=== PATIENT | male | born 1955 | race African-American/Black ===

== ENCOUNTER 2018-12-06 06:19 | Inpatient (IN) | payer OTHER ==
[~2018-12-06] VITALS: Ht 172.7 cm; Wt 113.0 kg
[~2018-12-06 06:19] MED LIST: ALB5IS NEB; ALBUAER3 IN; AMIO200T33 PO; BACL20TA PO; CLON0.3D4 PO; DOXY-346 PO; FURO1TAB33 PO; Ipratropium Bromide NEB; METO25TA5 PO; NIFE60TA59 PO; PRE5T PO; WARF5TAB71 PO
[2018-12-06 07:42] LABS: Basophils # (auto) 0.1 uL; Hemoglobin 8.1 g/dL (13.5-17.5); Monocytes # (auto) 0.6 uL; Red Cell Distribution Width 19.8 % (11.8-14.3)
[2018-12-06 07:46] LABS: Basophils % (auto) 1.9 % (0.0-2.0); Eosinophils # (auto) 0.3 uL; Eosinophils % (auto) 3.7 % (0.0-7.0); Hematocrit 25.4 % (41.0-53.0); Lymphocytes # (auto) 1.2 uL; Lymphocytes % (auto) 17.3 % (10.0-50.0); Mean Corpuscular Hemoglobin 22.3 pg (28.0-32.0); Mean Corpuscular Volume 69.7 fL (80.0-100.0); Monocytes % (auto) 8.1 % (0.0-12.0); Neutrophils # (auto) 4.9 uL; Platelet Count (auto) 262 10^3/uL (140-450); Red Blood Cells 3.65 10^6/uL (4.5-5.90); White Blood Cell 7.1 10^3/uL (4.4-10.8)
[2018-12-06 08:04] LABS: Albumin 3.4 g/dL (3.4-5.0); Anion Gap 6 (5-15); Blood Urea Nitrogen 14 mg/dL (7-18); Calcium 8.6 mg/dL (8.5-10.1); Carbon Dioxide 24 mmol/L (21-32); Chloride 109 mmol/L (98-107); Glucose 72 mg/dL (74-106); Magnesium 2.1 mg/dL (1.6-2.6); Potassium 3.9 mmol/L (3.5-5.1); Sodium 139 mmol/L (136-145)
[2018-12-06 08:07] LABS: Alanine Aminotransferase 12 U/L (16-61); Aspartate Aminotransferase 16 U/L (15-37); BUN/Creatinine Ratio 11.9; GFR African American 80 mL/min; GFR Non-African American 66 mL/min
[2018-12-06 08:12] LABS: Alkaline Phosphatase 69 U/L (45-117); Bilirubin, Total 0.3 mg/dL (0.2-1.0); Total Protein 8.3 g/dL (6.4-8.2)
[2018-12-06] MEDS ORDERED: NITROGLYCERIN 0.4 MG SL TAB SL PRN (09:00)
[2018-12-06] MEDS ORDERED: FUROSEMIDE 40 MG/4 ML VIAL IV ONE (09:00)
[2018-12-06] MEDS ORDERED: ALBUTEROL SULF 2.5 MG/0.5ML(0.5%) NEB SOLN NEB PRN (09:00)
[2018-12-06] MEDS: FUROSEMIDE 40 MG/4 ML VIAL IV SCH ×2 (09:25→17:18)
[2018-12-06 10:12] LABS: INR 1.53 (0.9-1.15)
[2018-12-06 10:12] LABS: Amphetamine Screen, Urine NEGATIVE (NEGATIVE); Barbiturate Scree,Urine NEGATIVE (NEGATIVE); Benzodiazephine Screen, Urine NEGATIVE (NEGATIVE); Cannabinoid Screen, Urine POSITIVE (NEGATIVE); Cocaine Screen, Urine POSITIVE (NEGATIVE); Phencyclidine Screen, Urine NEGATIVE (NEGATIVE)
[2018-12-06 10:16] LABS: Urine Bacteria NONE SEEN /hpf (None Seen); Urine Blood Negative /uL (Negative); Urine Specific Gravity 1.016 (1.001-1.035); Urine WBC <1 /hpf (0 - 3)
[2018-12-06] MEDS: BACLOFEN 10 MG TAB PO SCH ×2 (10:20→17:19)
[2018-12-06] MEDS: AMIODARONE HCL 200 MG TAB PO SCH ×2 (10:20→17:19)
[2018-12-06 10:21] LABS: Opiate Scree,Urine NEGATIVE (NEGATIVE)
[2018-12-06] MEDS: METOPROLOL TARTRATE 25 MG TAB PO SCH ×2 (10:21→17:19)
[2018-12-06] MEDS: NIFEdipine ER 30 MG TAB PO SCH ×2 (10:21→17:19)
--- NOTE | 2018-12-06 10:50 | NUR ---
TRANSFER FROM ER RECEIVED PATIENT. PATIENT AWAKE AND ALERT. NO SOB OR SIGNS OF DISTRESS NOTED. INSTRUCTED ON POC AND TO CALL FOR ASSISTANCE PRN. BED IN LOWEST POSITION WITH SIDE RAILS UP X2. WILL CONTINUE TO MONITOR.
[2018-12-06] MEDS: DOXYCYCLINE 100MG/250ML 250 ML IV SCH ×2 (12:01→17:19)
[2018-12-06] MEDS ORDERED: cloNIDine HCL 0.1 MG TAB PO SCH (14:00)
[2018-12-06] MEDS ORDERED: FURO1TAB31 PO (15:53)
[2018-12-06] MEDS ORDERED: DOXY-332 PO (15:53)
[2018-12-06] MEDS ORDERED: ALBU0.084 NEB (15:53)
--- NOTE | 2018-12-06 16:48 | NUR ---
D/C Planning Per Consult for home health safety evaluation and nebulizer. Contacted [facility] ph:) Fax:) faxed medical records. [facility] been [facility] and service to start within 48hrs upon d/c day. Contact [facility] ph:) Fax:) faxed medical records requested for nebulizer to be deliver to home when acceptance from insurance. Contacted [facility] ph:) fax:( [phone]) faxed medical records regarding authorization for home health and nebulizer. Addendum: 12/06/18 at 1651 by AYALA HEWITT Amended: Links added.
[2018-12-06 16:54] VITALS: BP 104/68
[2018-12-06] MEDS ORDERED: WARFARIN SODIUM 5 MG TAB PO ONE (17:00)
[2018-12-06 17:01] VITALS: BP 104/68
--- NOTE | 2018-12-06 18:30 | NUR ---
Discharge instructions given as ordered. Encourage to follow up with PCP as instructed. All questions and concerns addressed. Patient verbalized understanding. Medication reconciliation form completed and copy given to patient. IV removed with catheter intact, pressure dressing applied. Telemetry unit returned to ICU. Patient taken to vehicle via wheelchair with all personal belongings, accompanied by staff and family member. No distress noted at time of departure.
== END 2018-12-06 18:30 | disposition home health service (06) | DRG 291 ==
LOC: EDBD 06:19 → ER 06:22 → TELE 06:23 → TELE-WESTW 12:17
PROVIDERS: ADMIT Internal Medicine; ATTEND Internal Medicine
DX: I13.0 Hypertensive heart and chronic kidney disease with heart failure and stage 1 through stage 4 chronic kidney disease, or unspecified chronic kidney disease (principal); J18.9 Pneumonia, unspecified organism; I50.33 Acute on chronic diastolic (congestive) heart failure; I24.9 Acute ischemic heart disease, unspecified; J96.10 Chronic respiratory failure, unspecified whether with hypoxia or hypercapnia; J44.0 Chronic obstructive pulmonary disease with (acute) lower respiratory infection; I25.2 Old myocardial infarction; F17.210 Nicotine dependence, cigarettes, uncomplicated; I35.0 Nonrheumatic aortic (valve) stenosis; D64.9 Anemia, unspecified; Z99.81 Dependence on supplemental oxygen; I48.0 Paroxysmal atrial fibrillation; Z82.49 Family history of ischemic heart disease and other diseases of the circulatory system; Z86.711 Personal history of pulmonary embolism; Z79.01 Long term (current) use of anticoagulants; Z86.718 Personal history of other venous thrombosis and embolism; Z79.899 Other long term (current) drug therapy
CPT/HCPCS: 36415; 71045; 80053; 80307; 81001; 83735; 83880; 84484; 85025; 85610; 93005; 93306; 94640; 96374; G0378; J3490

== ENCOUNTER 2019-06-03 01:02 | Inpatient (IN) | payer OTHER ==
[~2019-06-03] VITALS: Ht 172.7 cm; Wt 99.9 kg
[2019-06-03] VITALS (7 sets, daily range): BP systolic 142–156; BP diastolic 69–83
[~2019-06-03 01:02] MED LIST changes: -ALB5IS NEB; +ALBU0.084 NEB; +DOXY-332 PO; -DOXY-346 PO; +FURO1TAB31 PO; -FURO1TAB33 PO; -Ipratropium Bromide NEB; +NIFE1TAB30 PO; -NIFE60TA59 PO; -PRE5T PO
[2019-06-03 01:41] LABS: Basophils # (auto) 0.1 10 ^3/uL (0-0.2); Basophils % (auto) 0.5 % (0.0-2.0); Eosinophils # (auto) 0.3 10 ^3/uL (0-0.8); Monocytes # (auto) 1.1 10 ^3/uL (0-1.3); Red Blood Cells 5.16 10^6/uL (4.5-5.90)
[2019-06-03 01:44] LABS: Eosinophils % (auto) 2.4 % (0.0-7.0); Hematocrit 31.8 % (41.0-53.0); Lymphocytes # (auto) 2.7 10 ^3/uL (0.4-5.4); Lymphocytes % (auto) 19.1 % (10.0-50.0); Mean Corpuscular Hemoglobin 17.4 pg (28.0-32.0); Mean Corpuscular Hgb Conc. 28.1 g/dL (32.0-36.0); Mean Corpuscular Volume 61.7 fL (80.0-100.0); Monocytes % (auto) 7.7 % (0.0-12.0); Neutrophils % (auto) 70.3 % (37.0-80.0); Platelet Count (auto) 424 10^3/uL (140-450); White Blood Cell 14.2 10^3/uL (4.4-10.8)
[2019-06-03 01:45] LABS: Red Cell Distribution Width 21.3 % (11.8-14.3)
[2019-06-03] MEDS ORDERED: fentaNYL CITRATE 100 MCG/2 ML VL IV ONE (01:45)
[2019-06-03] MEDS ORDERED: ONDANSETRON HCL 4 MG/2 ML VIAL IV ONE ×2 (01:45→03:30)
[2019-06-03] MEDS ORDERED: SODIUM CHLORIDE 0.9% 1,000 ML IV ONE (01:45)
[2019-06-03] MEDS ORDERED: fentaNYL CITRATE 5 ML ONE (01:47)
[2019-06-03 01:59] LABS: Albumin 3.6 g/dL (3.4-5.0); Anion Gap 5 (5-15); Blood Urea Nitrogen 17 mg/dL (7-18); Calcium 9.3 mg/dL (8.5-10.1); Carbon Dioxide 28 mmol/L (21-32); Chloride 103 mmol/L (98-107); Glucose 108 mg/dL (74-106); Potassium 3.9 mmol/L (3.5-5.1); Sodium 136 mmol/L (136-145)
[2019-06-03 02:01] LABS: Alanine Aminotransferase 18 U/L (16-61); Aspartate Aminotransferase 14 U/L (15-37); BUN/Creatinine Ratio 16.7; GFR African American 94 mL/min; GFR Non-African American 78 mL/min
[2019-06-03 02:05] LABS: Alkaline Phosphatase 71 U/L (45-117); Bilirubin, Total 0.3 mg/dL (0.2-1.0); Total Protein 9.1 g/dL (6.4-8.2)
[2019-06-03] MEDS ORDERED: metroNIDAZOLE 500MG/100ML 100 ML IV ONE (02:30)
[2019-06-03] MEDS ORDERED: levoFLOXacin 750MG 150 ML IV ONE (02:30)
[2019-06-03] MEDS ORDERED: ONDANSETRON HCL 4 MG/2 ML VIAL IV PRN (03:15)
[2019-06-03] MEDS ORDERED: ALBUTEROL SULF HFA 90MCG INH 200DOSE IN PRN (03:15)
[2019-06-03] MEDS ORDERED: DOCUSATE SOD 100 MG CAP PO PRN (03:15)
[2019-06-03] MEDS ORDERED: HYDROcodone-ACET 5/325MG TAB PO PRN (03:15)
[2019-06-03] MEDS ORDERED: ALBUTEROL SULF 2.5 MG/0.5ML(0.5%) NEB SOLN NEB PRN (03:15)
[2019-06-03] MEDS ORDERED: ACETAMINOPHEN 325 MG TAB PO PRN (03:15)
[2019-06-03 03:23] LABS: Amylase 140 U/L (25-115); Lipase 284 U/L (73-393)
[2019-06-03] MEDS ORDERED: HYDROmorphone HCL 2 MG/ML VL IV ONE (03:30)
[2019-06-03] MEDS: SODIUM CHLORIDE 0.9% 1,000 ML IV SCH (04:08)
--- NOTE | 2019-06-03 04:32 | NUR ---
Telemetry admit from ER SANTIAGO MAYERS admitted to Telemetry unit after SBAR received. Patient oriented to Eboni Padilla, primary RN, unit, room, bed, and unit policies regarding patient care and visiting hours. Patient now on continuous telemetry monitoring, tele box 31# and telemetry reading on arrival to unit is 66. Patient placed on bedside oxygen, weighed by bedscale and encouraged to call if they need something. All questions and concerns addressed, patient verbalized understanding. Note:
[2019-06-03] MEDS: metroNIDAZOLE 500MG/100ML 100 ML IV SCH ×3 (06:02→16:57)
[2019-06-03] MEDS: MORPHINE SULF INJ 2 MG/ML SYRINGE 1ML IV PRN ×4 (06:44→21:09)
[2019-06-03 07:55] LABS: Basophils # (auto) 0 10 ^3/uL (0-0.2); Basophils % (auto) 0.4 % (0.0-2.0); Eosinophils # (auto) 0.1 10 ^3/uL (0-0.8); Hemoglobin 8.1 g/dL (13.5-17.5); Mean Corpuscular Volume 62.2 fL (80.0-100.0)
[2019-06-03 07:57] LABS: Eosinophils % (auto) 1.3 % (0.0-7.0); Hematocrit 28.5 % (41.0-53.0); Lymphocytes # (auto) 1.5 10 ^3/uL (0.4-5.4); Lymphocytes % (auto) 15.5 % (10.0-50.0); Mean Corpuscular Hemoglobin 17.7 pg (28.0-32.0); Mean Corpuscular Hgb Conc. 28.5 g/dL (32.0-36.0); Monocytes % (auto) 9.7 % (0.0-12.0); Neutrophils # (auto) 7.2 10 ^3/uL (1.6-8.6); Neutrophils % (auto) 73.1 % (37.0-80.0); Nucleated Red Blood Cells % 0.1 %; Platelet Count (auto) 364 10^3/uL (140-450); Red Blood Cells 4.59 10^6/uL (4.5-5.90); White Blood Cell 9.9 10^3/uL (4.4-10.8)
[2019-06-03 08:01] LABS: Red Cell Distribution Width 20.7 % (11.8-14.3)
[2019-06-03 08:13] LABS: BUN/Creatinine Ratio 19.5; Calcium 8.7 mg/dL (8.5-10.1); Potassium 4.1 mmol/L (3.5-5.1)
[2019-06-03 08:37] LABS: INR 2.61 (0.9-1.15); Partial Thromboplastin Time 35.9 sec (23.64-32.05)
--- NOTE | 2019-06-03 09:50 | NUR ---
Respiratory note: Pt assessed for prn med neb tx. spo2 92%, hr 70, rr 18. no s/s of respiratory distress. Pt informed to hit call button if feeling sob or wheezing.
[2019-06-03] MEDS: AMIODARONE HCL 200 MG TAB PO SCH ×2 (10:00→21:17)
[2019-06-03] MEDS: NIFEdipine ER 30 MG TAB PO SCH ×2 (10:00→21:18)
[2019-06-03] MEDS: FUROSEMIDE 40 MG TAB PO SCH ×2 (10:00→21:17)
[2019-06-03] MEDS ORDERED: METOPROLOL TARTRATE 25 MG TAB PO SCH (10:00)
[2019-06-03] MEDS: cloNIDine 0.3 mg/24hr 7DAY PATCH TD SCH (10:00)
[2019-06-03] MEDS: METOPROLOL TARTRATE 25 MG TAB PO SCH ×2 (10:00→21:17)
--- NOTE | 2019-06-03 10:00 | NUR ---
PO MEDS HELD UNTIL SMALL BOWEL SERIES COMPLETED. WILL CONTINUE TO MONITOR.
--- NOTE | 2019-06-03 10:28 | NUR ---
NEW ORDERS RECEIVED FROM DR BOSWELL FOR ACCUCHECKS DUE TO PATIENT BEING NPO
[2019-06-03] MEDS ORDERED: DEXTROSE (50%) 50ML SYRG IV PRN (10:30)
[2019-06-03] MEDS: ACCU-CHEK COMFORT CURVE STRIP VI SCH ×2 (12:00→17:04)
[2019-06-03] MEDS: InsuLIN REG 1unit/0.01ml Soln (100units/ml) SC SCH ×2 (12:00→17:04)
--- NOTE | 2019-06-03 12:50 | NUR ---
RADIOLOGY BEDSIDE TO TAKE PATIENT FOR SMALL BOWEL SERIES.
[2019-06-03] MEDS ORDERED: GASTROGRAFIN 120 ML SOL ONE (12:52)
--- NOTE | 2019-06-03 13:07 | NUR ---
NUTRITION ASSESSMENT NOTES Please refer to link notes of nutrition screen form filed under the intervention section of the plan of care for further details. Est. Energy Needs: 4675-3469 kcal (17-20 kcal/kg BW). Est. Protein Needs: 77-85 gms/day (1.0-1.1 gms/kg Adj.BW). Will continue to monitor pertinent labs and reassess nutrient need prn Addendum: 06/03/19 at [address] Amended: Links added.
--- NOTE | 2019-06-03 13:30 | NUR ---
RETURNED FROM RADIOLOGY. SUCTION TO REMAIN OFF UNTIL SMALL BOWEL SERIES IS COMPLETED. UPDATED PATIENT ON POC.
--- NOTE | 2019-06-03 13:40 | NUR ---
DR BROOKS BEDSIDE ORDERED LABS AND ECHO.
--- NOTE | 2019-06-03 18:36 | NUR ---
STAND BY ASSIST TO RESTROOM; TOLERATED WELL.
--- NOTE | 2019-06-03 19:00 | NUR ---
OPENING NOTE Received report from day shift RN. Patient is A&O X's 4 with no s/s of distress and reports some abdominal pain. Educated patient on POC and on pain management/medication. Patient verbalized understanding. Patient has NG tube to left nare at this time that is no longer to suction. Per day shift RN, it is to remain clamped until small bowel series is completed. tried to call radiology but had no answer. Bed is in lowest/locked position with side rails up X's 2 and call light is within reach of patient. Patient NPO. Will continue care.
--- NOTE | 2019-06-03 21:19 | NUR ---
PO MEDS HELD Patient is NPO. NG tube is off until small bowel series completed.
--- NOTE | 2019-06-03 21:39 | NUR ---
PAIN REASSESSMENT Patient states that he still has generalized abdominal pain. He said that it is not as bad as before. Will continue to monitor.
--- NOTE | 2019-06-03 22:54 | NUR ---
Respiratory note: PT SEEN AND ASSESSED FOR PRN MED NEB TX AT 2254. TX IS NOT INDICATED AT THIS TIME. PT DISPLAYING NO SIGNS OF RESPIRATORY DISTRESS. HR 76 RR 18 POX 98% ON 3L NASAL CANNULA. PT AWARE TO CALL FOR RT IF ANY DISTRESS OCCURS
[2019-06-04] MEDS: metroNIDAZOLE 500MG/100ML 100 ML IV SCH ×2 (00:10→06:09)
[2019-06-04] MEDS: ACCU-CHEK COMFORT CURVE STRIP VI SCH ×3 (00:10→12:00)
[2019-06-04] MEDS: MORPHINE SULF INJ 2 MG/ML SYRINGE 1ML IV PRN ×4 (01:13→14:17)
--- NOTE | 2019-06-04 04:07 | NUR ---
SMALL BOWEL SERIES a/c technician said that they would not know if the series was finished or not because they did not receive any notes saying if they needed to come up and take more images. The tech also said that it would have to wait till day shift in order to know or not if its done. Will inform day shift RN to follow up.
[2019-06-04 04:44] LABS: Basophils # (auto) 0 10 ^3/uL (0-0.2); Basophils % (auto) 0.5 % (0.0-2.0); Eosinophils # (auto) 0.2 10 ^3/uL (0-0.8); Eosinophils % (auto) 3.2 % (0.0-7.0); Hematocrit 27.1 % (41.0-53.0); Hemoglobin 7.5 g/dL (13.5-17.5); INR 3.15 (0.9-1.15); Lymphocytes # (auto) 1.9 10 ^3/uL (0.4-5.4); Lymphocytes % (auto) 25.1 % (10.0-50.0); Mean Corpuscular Hemoglobin 17.6 pg (28.0-32.0); Mean Corpuscular Hgb Conc. 27.8 g/dL (32.0-36.0); Mean Corpuscular Volume 63.4 fL (80.0-100.0); Monocytes # (auto) 1.3 10 ^3/uL (0-1.3); Monocytes % (auto) 17.1 % (0.0-12.0); Neutrophils % (auto) 54.1 % (37.0-80.0); Nucleated Red Blood Cells % 0.1 %; Platelet Count (auto) 331 10^3/uL (140-450); Red Blood Cells 4.27 10^6/uL (4.5-5.90); Red Cell Distribution Width 20.4 % (11.8-14.3); White Blood Cell 7.4 10^3/uL (4.4-10.8)
[2019-06-04 04:54] LABS: BUN/Creatinine Ratio 14.1; Calcium 8.6 mg/dL (8.5-10.1); Potassium 3.8 mmol/L (3.5-5.1)
[2019-06-04 05:40] VITALS: BP 165/83
[2019-06-04] MEDS: InsuLIN REG 1unit/0.01ml Soln (100units/ml) SC SCH ×3 (06:00→12:00)
[2019-06-04] MEDS: SODIUM CHLORIDE 0.9% 1,000 ML IV SCH (06:09)
--- NOTE | 2019-06-04 06:46 | NUR ---
PAIN REASSESSMENT Patient is resting in bed with no s/s of discomfort seen at this time. Patient remains with NG tube to left nare, that is clamped. Patient NPO. Will inform day shift RN about what radiology said and to have them follow up.
--- NOTE | 2019-06-04 07:25 | NUR ---
Opening shift note Assumed care of patient. Patient A&Ox4, respirations even and non-labored with no s/s of distress. Discussed POC with patient who verbalized understanding. IV patent and intact. NC at 3L. Bed lowered/locked with 2 side rails up. Call light within reach. Will continue to monitor.
[2019-06-04 09:00] VITALS: BP 171/87
--- NOTE | 2019-06-04 09:00 | NUR ---
DR PERAZA UPDATED ON POC. PATIENT REFUSED SURGERY. N/O TO ADVANCE DIET TO CLEAR LIQUIDS AND D/C NG TUBE.
--- NOTE | 2019-06-04 09:30 | NUR ---
NG TUBE D/C'D. CATHETER TIP INTACT; PATIENT TOLERATED WELL.
--- NOTE | 2019-06-04 09:50 | NUR ---
Pain Patient requested pain medication and rated 7/10 for abdominal pain. Administered Morphine per EMAR. Will continue to monitor.
--- NOTE | 2019-06-04 09:51 | NUR ---
Respiratory note: ASSESSED PT FOR PRN BREATHING TX. PT SHOWS NO S/S OF RESPIRATORY DISTRESS, PT IS CURRENTLY WEARING A 2 L NASAL CANNULA. PER PT, " I DON'T WANT ANY TREATMENTS, I WANT TO GO HOME" PT VITALS REMAIN STABLE AT THIS TIME, HR 70, RR 18, SP02 98%. WILL CONTINUE TO MONITOR PT.
[2019-06-04] MEDS: FUROSEMIDE 40 MG TAB PO SCH (09:58)
[2019-06-04] MEDS: AMIODARONE HCL 200 MG TAB PO SCH (09:58)
[2019-06-04] MEDS: METOPROLOL TARTRATE 25 MG TAB PO SCH (09:59)
[2019-06-04] MEDS ORDERED: METOPROLOL TARTRATE 1MG/1ML-5ML VIAL IV PRN (10:00)
[2019-06-04] MEDS: NIFEdipine ER 30 MG TAB PO SCH (10:00)
[2019-06-04] MEDS: cloNIDine 0.3 mg/24hr 7DAY PATCH TD SCH (10:15)
--- NOTE | 2019-06-04 10:30 | NUR ---
Pain reassessed Patient sitting up eating on the side of the bed. No c/o pain or discomfort at this time. Will continue to monitor.
[2019-06-04 13:00] VITALS: BP 171/78
--- NOTE | 2019-06-04 14:47 | NUR ---
PAIN RE-ASSESSED PATIENT STATED PAIN 3/10 MILD PAIN AT A TOLERABLE LEVEL; WILL CONTINUE TO MONITOR.
[2019-06-04 17:00] VITALS: BP 136/81
--- NOTE | 2019-06-04 18:26 | NUR ---
PATIENT DISCHARGED. AWAITING TAXI VOUCHER.
--- NOTE | 2019-06-04 18:38 | NUR ---
TAXI VOUCHER [facility] [employer] STATED THE [employer]AL [employer] B[employer]PLER OFFICE IS CLOSED FOR REPORT. WILL ENDORSE CARE TO NIGHT RN FOR A TAXI VOUCHER[place] [address] [address]
--- NOTE | 2019-06-04 19:34 | NUR ---
CALLED [facility] ETA 20 minutes. Patient is aware and waiting. Patient is A&O X's 4 with no s/s of distress and reports no pain. Patient is ready to leave and has no concerns.
--- NOTE | 2019-06-04 19:45 | NUR ---
PATIENT DISCHARGED Patient went down to main lobby to be picked up by the taxi cab. Patient was brought down in a wheelchair by Camryn RANGEL. Patient shows no s/s of distress. Patient left with all personal belongings and discharge paperwork.
== END 2019-06-04 19:45 | disposition home or self-care (01) | DRG 394 ==
LOC: EDBD 01:02 → ER 01:08 → TELE-CENTR 01:09
PROVIDERS: ADMIT Hospitalist; ATTEND Hospitalist
DX: K42.0 Umbilical hernia with obstruction, without gangrene (principal); I50.32 Chronic diastolic (congestive) heart failure; I13.0 Hypertensive heart and chronic kidney disease with heart failure and stage 1 through stage 4 chronic kidney disease, or unspecified chronic kidney disease; Z99.81 Dependence on supplemental oxygen; K43.6 Other and unspecified ventral hernia with obstruction, without gangrene; J44.9 Chronic obstructive pulmonary disease, unspecified; I48.0 Paroxysmal atrial fibrillation; I25.10 Atherosclerotic heart disease of native coronary artery without angina pectoris; N18.9 Chronic kidney disease, unspecified; Z83.3 Family history of diabetes mellitus; F17.210 Nicotine dependence, cigarettes, uncomplicated; I35.0 Nonrheumatic aortic (valve) stenosis; Z82.49 Family history of ischemic heart disease and other diseases of the circulatory system; Z86.711 Personal history of pulmonary embolism
CPT/HCPCS: 36415; 71045; 74176; 74250; 80048; 80053; 82150; 82962; 83036; 83690; 83880; 84484; 85025; 85610; 85730; 87040; 93005; 93306; 96361; 96365; 96375; G0378; J1815; J1956; J2405; J3490

== ENCOUNTER 2020-03-23 07:45 | Inpatient (IN) | payer OTHER ==
[~2020-03-23] VITALS: Ht 172.7 cm; Wt 52.5 kg
[~2020-03-23 07:45] MED LIST changes: -DOXY-332 PO
[2020-03-23] MEDS ORDERED: MORPHINE SULFATE 4 MG/ML SYR/VIAL IV ONE (08:00)
[2020-03-23] MEDS ORDERED: ONDANSETRON HCL 4 MG/2 ML VIAL IV ONE (08:00)
[2020-03-23 08:22] LABS: Basophils # (auto) 0.1 10 ^3/uL (0-0.2); Hemoglobin 11.4 g/dL (13.5-17.5); Neutrophils # (auto) 6.5 10 ^3/uL (1.6-8.6)
[2020-03-23 08:26] LABS: Basophils % (auto) 1.1 % (0.0-2.0); Eosinophils # (auto) 0.3 10 ^3/uL (0-0.8); Eosinophils % (auto) 3.5 % (0.0-7.0); Lymphocytes # (auto) 1.6 10 ^3/uL (0.4-5.4); Lymphocytes % (auto) 17.1 % (10.0-50.0); Mean Corpuscular Hemoglobin 23.1 pg (28.0-32.0); Mean Corpuscular Hgb Conc. 30.8 g/dL (32.0-36.0); Mean Corpuscular Volume 74.8 fL (80.0-100.0); Monocytes % (auto) 10.8 % (0.0-12.0); Neutrophils % (auto) 67.5 % (37.0-80.0); Nucleated Red Blood Cells % 0.1 %; Platelet Count (auto) 233 10^3/uL (140-450); Red Blood Cells 4.94 10^6/uL (4.5-5.90); White Blood Cell 9.6 10^3/uL (4.4-10.8)
[2020-03-23 08:42] LABS: Red Cell Distribution Width 24.6 % (11.8-14.3)
[2020-03-23 08:48] LABS: INR 1.01 (0.9-1.15); Partial Thromboplastin Time 26.9 sec (23.0-31.2)
[2020-03-23 08:56] LABS: Albumin 3.1 g/dL (3.4-5.0); Calcium 8.2 mg/dL (8.5-10.1); Magnesium 1.9 mg/dL (1.6-2.6); Potassium 3.7 mmol/L (3.5-5.1)
[2020-03-23 09:04] LABS: BUN/Creatinine Ratio 6.6; Bilirubin, Total 0.3 mg/dL (0.2-1.0); Total Protein 8.2 g/dL (6.4-8.2)
[2020-03-23] MEDS ORDERED: ALBUTEROL SULF 2.5 MG/0.5ML(0.5%) NEB SOLN NEB PRN (11:30)
[2020-03-23] MEDS ORDERED: NITROGLYCERIN 0.4 MG SL TAB SL PRN (11:30)
[2020-03-23] MEDS ORDERED: PROMETHAZINE HCL 25 MG/ML 1ML IV PRN (11:30)
[2020-03-23] MEDS ORDERED: ACETAMINOPHEN 325 MG TAB PO PRN (11:30)
[2020-03-23] MEDS ORDERED: HYDROcodone-ACET 5/325MG TAB PO PRN (11:30)
[2020-03-23] MEDS ORDERED: ALPRAZolam 0.25 MG TAB PO PRN (11:30)
[2020-03-23] MEDS: ASPirin 81 mg TAB PO SCH (11:51)
[2020-03-23] MEDS: ATORVASTATIN 20 MG TAB PO SCH ×2 (11:51→22:28)
[2020-03-23] MEDS: LOSARTAN POTASSIUM 25 MG TAB PO SCH (12:16)
[2020-03-23] MEDS: hydrALAZINE HCL 25 MG TAB PO SCH ×2 (12:16→22:26)
[2020-03-23] MEDS: MORPHINE SULF INJ 2 MG/ML SYRINGE 1ML IV PRN ×2 (12:21→20:10)
[2020-03-23] MEDS ORDERED: IOHEXOL 350 MG/ML 100ML IJ ONE (12:47)
[2020-03-23 13:11] LABS: Urine Bacteria NONE SEEN /hpf (None Seen); Urine Blood Negative /uL (Negative); Urine Hyaline Cast FEW /lpf (0 - 2); Urine Specific Gravity 1.014 (1.001-1.035); Urine WBC 1 /hpf (0 - 3)
[2020-03-23 13:20] LABS: Cholesterol 106 mg/dL (< 200)
[2020-03-23 13:23] LABS: HDL Cholesterol 35 mg/dL (40-59); LDL Cholesterol 60 mg/dL (< 100); Triglycerides 53 mg/dL (< 150)
[2020-03-23 13:25] LABS: Amphetamine Screen, Urine NEGATIVE (NEGATIVE); Barbiturate Scree,Urine NEGATIVE (NEGATIVE); Benzodiazephine Screen, Urine POSITIVE (NEGATIVE); Cannabinoid Screen, Urine NEGATIVE (NEGATIVE); Cocaine Screen, Urine POSITIVE (NEGATIVE); Opiate Scree,Urine POSITIVE (NEGATIVE); Phencyclidine Screen, Urine NEGATIVE (NEGATIVE)
[2020-03-23 20:11] LABS: Basophils # (auto) 0.1 10 ^3/uL (0-0.2); Lymphocytes # (auto) 1.7 10 ^3/uL (0.4-5.4); Mean Corpuscular Volume 74.8 fL (80.0-100.0); Monocytes # (auto) 0.9 10 ^3/uL (0-1.3); Platelet Count (auto) 238 10^3/uL (140-450)
[2020-03-23 20:13] LABS: Basophils % (auto) 0.8 % (0.0-2.0); Eosinophils # (auto) 0.3 10 ^3/uL (0-0.8); Eosinophils % (auto) 3.8 % (0.0-7.0); Hematocrit 36.5 % (41.0-53.0); Hemoglobin 11.4 g/dL (13.5-17.5); Lymphocytes % (auto) 21.3 % (10.0-50.0); Mean Corpuscular Hemoglobin 23.3 pg (28.0-32.0); Mean Corpuscular Hgb Conc. 31.2 g/dL (32.0-36.0); Neutrophils # (auto) 4.9 10 ^3/uL (1.6-8.6); Neutrophils % (auto) 62.1 % (37.0-80.0); Red Blood Cells 4.88 10^6/uL (4.5-5.90); White Blood Cell 7.8 10^3/uL (4.4-10.8)
[2020-03-23 20:28] LABS: Albumin 3.2 g/dL (3.4-5.0); Calcium 8.2 mg/dL (8.5-10.1); Magnesium 1.7 mg/dL (1.6-2.6); Potassium 3.9 mmol/L (3.5-5.1)
[2020-03-23 20:30] LABS: BUN/Creatinine Ratio 7.3
[2020-03-23] MEDS ORDERED: SODIUM CHLORIDE 0.9% 1,000 ML IV ONE (20:30)
[2020-03-23] MEDS ORDERED: VANCOMYCIN 1GM/250ML 250 ML IV ONE (20:30)
[2020-03-23 20:32] LABS: Red Cell Distribution Width 24.7 % (11.8-14.3)
[2020-03-23 20:40] LABS: Bilirubin, Total 0.2 mg/dL (0.2-1.0); Total Protein 7.8 g/dL (6.4-8.2)
[2020-03-23 20:56] LABS: INR 1.01 (0.9-1.15); Partial Thromboplastin Time 25.1 sec (23.0-31.2)
[2020-03-23] MEDS ORDERED: PIPERACILLIN-TAZOB 3.375GM 100 ML IV ONE (21:00)
[2020-03-23] MEDS: DOXYCYCLINE 100 MG TAB/CAP PO SCH (22:00)
[2020-03-24] MEDS ORDERED: hydrALAZINE HCL 20 MG/ML VL IV PRN (03:15)
[2020-03-24] MEDS ORDERED: amLODIPine BESYLATE 5 MG TAB PO ONE (03:15)
[2020-03-24] MEDS ORDERED: METOPROLOL TARTRATE 1MG/1ML-5ML VIAL IV PRN ×2 (03:15→11:00)
[2020-03-24] MEDS ORDERED: ENALAPRILAT 1.25 MG/ML-1ML VIAL IV PRN (03:15)
[2020-03-24] MEDS ORDERED: LOSARTAN POTASSIUM 25 MG TAB PO ONE (03:30)
[2020-03-24] MEDS: MORPHINE SULF INJ 2 MG/ML SYRINGE 1ML IV PRN ×3 (05:59→18:06)
[2020-03-24 06:36] LABS: Basophils # (auto) 0.1 10 ^3/uL (0-0.2); Eosinophils # (auto) 0.3 10 ^3/uL (0-0.8); Hemoglobin 11.3 g/dL (13.5-17.5); Lymphocytes # (auto) 1.8 10 ^3/uL (0.4-5.4); Lymphocytes % (auto) 21.2 % (10.0-50.0); Red Blood Cells 4.85 10^6/uL (4.5-5.90); White Blood Cell 8.3 10^3/uL (4.4-10.8)
[2020-03-24 06:38] LABS: Basophils % (auto) 0.6 % (0.0-2.0); Eosinophils % (auto) 3.8 % (0.0-7.0); Mean Corpuscular Hemoglobin 23.3 pg (28.0-32.0); Mean Corpuscular Hgb Conc. 31.5 g/dL (32.0-36.0); Mean Corpuscular Volume 74.1 fL (80.0-100.0); Monocytes % (auto) 12.3 % (0.0-12.0); Neutrophils # (auto) 5.2 10 ^3/uL (1.6-8.6); Neutrophils % (auto) 62.1 % (37.0-80.0); Platelet Count (auto) 243 10^3/uL (140-450)
[2020-03-24 06:39] LABS: Red Cell Distribution Width 25.2 % (11.8-14.3)
[2020-03-24 06:51] LABS: BUN/Creatinine Ratio 9.2; Calcium 8.7 mg/dL (8.5-10.1); Potassium 4.1 mmol/L (3.5-5.1)
[2020-03-24] MEDS: LOSARTAN POTASSIUM 25 MG TAB PO SCH (09:00)
[2020-03-24] MEDS: ASPirin 81 mg TAB PO SCH (09:00)
[2020-03-24] MEDS: hydrALAZINE HCL 25 MG TAB PO SCH (09:00)
[2020-03-24] MEDS: PANTOPRAZOLE 40 MG TAB PO SCH (09:00)
[2020-03-24] MEDS: DOXYCYCLINE 100 MG TAB/CAP PO SCH ×2 (09:00→21:59)
[2020-03-24] MEDS ORDERED: AML5T PO (09:23)
[2020-03-24] MEDS ORDERED: ALBU0.084 NEB (09:23)
[2020-03-24] MEDS ORDERED: POTA-180 PO (09:23)
[2020-03-24] MEDS ORDERED: ASPI81CH43 PO (09:23)
[2020-03-24] MEDS ORDERED: FURO1TAB31 PO (09:23)
[2020-03-24] MEDS ORDERED: AMIO200T33 PO (09:23)
[2020-03-24] MEDS ORDERED: METO25TA5 PO (09:23)
[2020-03-24] MEDS ORDERED: amLODIPine BESYLATE 5 MG TAB PO SCH ×2 (10:00)
[2020-03-24] MEDS ORDERED: APIX5TAB OR (10:54)
[2020-03-24] MEDS: METOPROLOL TARTRATE 25 MG TAB PO SCH ×2 (10:58→21:58)
[2020-03-24] MEDS: NIFEdipine ER 30 MG TAB PO SCH (10:58)
[2020-03-24] MEDS ORDERED: APIXABAN 5 MG TAB PO ONE (11:15)
[2020-03-24] MEDS ORDERED: AMIODARONE 450mg/250ml AE 250 ML IV SCH (12:00)
[2020-03-24] MEDS ORDERED: AMIODARONE HCL 150 MG in D5W 5% 100 ML IV ONE (12:00)
[2020-03-24] MEDS: AMIODARONE 450mg/250ml AE 250 ML IV SCH (18:00)
[2020-03-24] MEDS: APIXABAN 5 MG TAB PO SCH (21:56)
[2020-03-24] MEDS: ATORVASTATIN 20 MG TAB PO SCH (21:56)
[2020-03-25] MEDS: MORPHINE SULF INJ 2 MG/ML SYRINGE 1ML IV PRN (01:16)
[2020-03-25 08:12] LABS: Eosinophils # (auto) 0.2 10 ^3/uL (0-0.8); Hemoglobin 11.1 g/dL (13.5-17.5); Mean Corpuscular Hemoglobin 23.3 pg (28.0-32.0); Neutrophils # (auto) 6.3 10 ^3/uL (1.6-8.6); White Blood Cell 8.6 10^3/uL (4.4-10.8)
[2020-03-25 08:16] LABS: Basophils # (auto) 0 10 ^3/uL (0-0.2); Basophils % (auto) 0.5 % (0.0-2.0); Eosinophils % (auto) 2.9 % (0.0-7.0); Hematocrit 35.2 % (41.0-53.0); Mean Corpuscular Hgb Conc. 31.5 g/dL (32.0-36.0); Mean Corpuscular Volume 73.9 fL (80.0-100.0); Monocytes % (auto) 11.2 % (0.0-12.0); Neutrophils % (auto) 73.4 % (37.0-80.0); Platelet Count (auto) 223 10^3/uL (140-450); Red Blood Cells 4.76 10^6/uL (4.5-5.90); Red Cell Distribution Width 24.7 % (11.8-14.3)
[2020-03-25 08:23] LABS: Potassium 4.2 mmol/L (3.5-5.1)
[2020-03-25 08:27] LABS: BUN/Creatinine Ratio 7.6; Calcium 8.4 mg/dL (8.5-10.1)
[2020-03-25] MEDS: ASPirin 81 mg TAB PO SCH (09:59)
[2020-03-25] MEDS: DOXYCYCLINE 100 MG TAB/CAP PO SCH (10:00)
[2020-03-25] MEDS: METOPROLOL TARTRATE 25 MG TAB PO SCH (10:00)
[2020-03-25] MEDS: PANTOPRAZOLE 40 MG TAB PO SCH (10:00)
[2020-03-25] MEDS: LOSARTAN POTASSIUM 25 MG TAB PO SCH (10:02)
[2020-03-25] MEDS: APIXABAN 5 MG TAB PO SCH (10:03)
[2020-03-25] MEDS ORDERED: NIFEdipine ER 30 MG TAB PO ONE (10:05)
[2020-03-25] MEDS: NIFEdipine ER 30 MG TAB PO SCH (10:06)
[2020-03-25] MEDS: AMIODARONE 450mg/250ml AE 250 ML IV SCH (10:07)
[2020-03-25 12:18] VITALS: BP 160/86
[2020-03-25] MEDS ORDERED: NIFE90TA49 PO (12:33)
== END 2020-03-25 14:47 | disposition home health service (06) | DRG 291 ==
LOC: ER 07:45 → EDBD 07:45 → TELE 07:46
PROVIDERS: ADMIT Internal Medicine; ATTEND Internal Medicine
DX: I11.0 Hypertensive heart disease with heart failure (principal); J18.9 Pneumonia, unspecified organism; J44.0 Chronic obstructive pulmonary disease with (acute) lower respiratory infection; E66.9 Obesity, unspecified; F12.90 Cannabis use, unspecified, uncomplicated; F14.90 Cocaine use, unspecified, uncomplicated; F17.210 Nicotine dependence, cigarettes, uncomplicated; I25.10 Atherosclerotic heart disease of native coronary artery without angina pectoris; J44.9 Chronic obstructive pulmonary disease, unspecified; Z20.822 Contact with and (suspected) exposure to COVID-19; I48.0 Paroxysmal atrial fibrillation; I50.23 Acute on chronic systolic (congestive) heart failure; I25.2 Old myocardial infarction; Z68.38 Body mass index [BMI] 38.0-38.9, adult; Z79.01 Long term (current) use of anticoagulants; Z82.49 Family history of ischemic heart disease and other diseases of the circulatory system; Z86.711 Personal history of pulmonary embolism; Z83.3 Family history of diabetes mellitus; Z91.19 Patient's noncompliance with other medical treatment and regimen; Z99.81 Dependence on supplemental oxygen
CPT/HCPCS: 36415; 71045; 71275; 80048; 80053; 80061; 80307; 81001; 83735; 83880; 84443; 84484; 85025; 85379; 85610; 85730; 87040; 87426; 93005; 93306; 93970; 96361; 96374; 96375; 99291; G0378; J2405; J2543; J7060

== ENCOUNTER 2020-05-23 11:44 | Emergency (ER) | payer OTHER ==
[~2020-05-23] VITALS: Ht 172.7 cm; Wt 108.9 kg
[~2020-05-23 11:44] MED LIST changes: +AML5T PO; +APIX5TAB OR; +ASPI81CH43 PO; +NIFE90TA49 PO; +POTA-180 PO
[2020-05-23 12:01] VITALS: BP 154/88
[2020-05-23 12:40] LABS: Basophils # (auto) 0.1 10 ^3/uL (0-0.2); Eosinophils # (auto) 0.2 10 ^3/uL (0-0.8); Hemoglobin 10.7 g/dL (13.5-17.5); Monocytes # (auto) 1.2 10 ^3/uL (0-1.3); Nucleated Red Blood Cells % 0.1 %
[2020-05-23 12:42] LABS: Eosinophils % (auto) 1.4 % (0.0-7.0); Hematocrit 33.9 % (41.0-53.0); Lymphocytes # (auto) 1.1 10 ^3/uL (0.4-5.4); Mean Corpuscular Hemoglobin 24.8 pg (28.0-32.0); Mean Corpuscular Hgb Conc. 31.5 g/dL (32.0-36.0); Mean Corpuscular Volume 78.7 fL (80.0-100.0); Monocytes % (auto) 9.3 % (0.0-12.0); Neutrophils # (auto) 9.8 10 ^3/uL (1.6-8.6); Neutrophils % (auto) 79.3 % (37.0-80.0); Platelet Count (auto) 280 10^3/uL (140-450); Red Blood Cells 4.31 10^6/uL (4.5-5.90); Red Cell Distribution Width 22.6 % (11.8-14.3); White Blood Cell 12.3 10^3/uL (4.4-10.8)
[2020-05-23 12:46] LABS: Calcium 7.8 mg/dL (8.5-10.1); Magnesium 1.9 mg/dL (1.6-2.6)
[2020-05-23 12:48] LABS: BUN/Creatinine Ratio 16.2
[2020-05-23 12:54] LABS: Bilirubin, Total 0.4 mg/dL (0.2-1.0); Total Protein 7.7 g/dL (6.4-8.2)
== END 2020-05-23 17:45 | disposition left against medical advice (07) ==
LOC: ER 11:44 → EDBD 11:44 → ER 17:45
DX: R07.89 Other chest pain (principal); R06.02 Shortness of breath; I13.0 Hypertensive heart and chronic kidney disease with heart failure and stage 1 through stage 4 chronic kidney disease, or unspecified chronic kidney disease; N18.9 Chronic kidney disease, unspecified; I50.9 Heart failure, unspecified; J44.9 Chronic obstructive pulmonary disease, unspecified; F17.210 Nicotine dependence, cigarettes, uncomplicated
CPT/HCPCS: 36415; 71045; 74176; 80053; 83735; 83880; 84484; 85025; 85379; 93005

== ENCOUNTER 2021-05-30 16:15 | Inpatient (IN) | payer OTHER ==
[~2021-05-30] VITALS: Ht 172.7 cm; Wt 110.4 kg
[2021-05-30 17:00] VITALS: BP 135/84
[2021-05-30] MEDS ORDERED: MORPHINE SULFATE INJECTION 2 MG/ML SYRG IV PRN (17:00)
[2021-05-30] MEDS ORDERED: NITROGLYCERIN 0.4 MG SL TAB SL PRN (17:00)
[2021-05-30 20:00] VITALS: BP 147/83
[2021-05-30] MEDS ORDERED: HYDROcodone-ACET 5/325MG TAB PO PRN (20:45)
[2021-05-30] MEDS: MORPHINE SULFATE INJECTION 2 MG/ML SYRG IV PRN (21:03)
[2021-05-30 22:00] VITALS: BP 147/83
[2021-05-31] MEDS: MORPHINE SULFATE INJECTION 2 MG/ML SYRG IV PRN ×3 (03:38→20:19)
[2021-05-31 05:00] VITALS: BP 149/93
[2021-05-31 06:53] LABS: Basophils # (auto) 0.1 10 ^3/uL (0-0.2); Basophils % (auto) 0.9 % (0.0-2.0); Eosinophils # (auto) 0.5 10 ^3/uL (0-0.8); Eosinophils % (auto) 5.8 % (0.0-7.0); Hematocrit 38.7 % (41.0-53.0); Hemoglobin 12.7 g/dL (13.5-17.5); Lymphocytes # (auto) 1.1 10 ^3/uL (0.4-5.4); Lymphocytes % (auto) 12.4 % (10.0-50.0); Mean Corpuscular Hemoglobin 28.1 pg (28.0-32.0); Mean Corpuscular Hgb Conc. 32.8 g/dL (32.0-36.0); Mean Corpuscular Volume 85.7 fL (80.0-100.0); Monocytes # (auto) 0.6 10 ^3/uL (0-1.3); Monocytes % (auto) 6.9 % (0.0-12.0); Neutrophils # (auto) 6.7 10 ^3/uL (1.6-8.6); Nucleated Red Blood Cells % 0.1 %; Red Blood Cells 4.51 10^6/uL (4.5-5.90); Red Cell Distribution Width 20.8 % (11.8-14.3)
[2021-05-31 07:11] LABS: Potassium 3.9 mmol/L (3.5-5.1)
[2021-05-31 07:14] LABS: BUN/Creatinine Ratio 10.3
[2021-05-31 07:35] LABS: INR 1.1 (0.9-1.15); Partial Thromboplastin Time 33.7 sec (23.6-33.0)
[2021-05-31] MEDS ORDERED: ACETAMINOPHEN 325 MG TAB PO PRN (07:45)
[2021-05-31] MEDS ORDERED: HYDROcodone-ACET 5/325MG TAB PO PRN ×2 (07:45→10:00)
[2021-05-31] MEDS ORDERED: NITROGLYCERIN 0.4 MG SL TAB SL PRN (07:45)
[2021-05-31] MEDS ORDERED: ONDANSETRON HCL 4 MG/2 ML VIAL IV PRN (07:45)
[2021-05-31 08:00] VITALS: BP 141/82
[2021-05-31] MEDS: DOXYCYCLINE 100 MG TAB/CAP PO SCH ×2 (09:58→22:01)
[2021-05-31] MEDS: LISINOPRIL 20 MG TAB PO SCH ×2 (09:58→22:02)
[2021-05-31] MEDS ORDERED: ASPirin 81 mg TAB PO SCH (10:00)
[2021-05-31] MEDS ORDERED: FUROSEMIDE 40 MG TAB PO SCH (10:00)
[2021-05-31] MEDS ORDERED: ENOXAPARIN SOD 100 MG/1 ML SYRINGE SC SCH (10:00)
[2021-05-31] MEDS: ENOXAPARIN SOD 120 MG/0.8 ML SYRINGE SC SCH ×2 (10:00→22:02)
[2021-05-31] MEDS: METOPROLOL TARTRATE 25 MG TAB PO SCH ×2 (10:00→22:01)
[2021-05-31] MEDS ORDERED: METOPROLOL TARTRATE 25 MG TAB PO SCH (10:00)
[2021-05-31] MEDS ORDERED: CARVEDILOL 12.5 MG TAB PO SCH (10:00)
[2021-05-31] MEDS ORDERED: PANTOPRAZOLE 40 MG/10 ML VIAL INJ IV SCH (10:15)
[2021-05-31] MEDS ORDERED: DEXTROSE (50%) 50ML SYRG IV PRN (10:15)
[2021-05-31] MEDS: ACCU-CHEK COMFORT CURVE STRIP VI SCH ×3 (11:30→22:02)
[2021-05-31] MEDS: InsuLIN REG 1unit/0.01ml Soln (100units/ml) SC SCH ×2 (11:30→17:00)
[2021-05-31 13:00] VITALS: BP 143/83
[2021-05-31 17:34] VITALS: BP 145/97
[2021-05-31 22:00] VITALS: BP_DIAS 151
[2021-05-31] MEDS ORDERED: ATORVASTATIN 20 MG TAB PO SCH (22:00)
[2021-05-31] MEDS ORDERED: InsuLIN REG 1unit/0.01ml Soln (100units/ml) SC SCH (22:00)
[2021-06-01] MEDS: MORPHINE SULFATE INJECTION 2 MG/ML SYRG IV PRN (02:59)
[2021-06-01 05:00] VITALS: BP 147/90
[2021-06-01 06:20] LABS: Basophils # (auto) 0.1 10 ^3/uL (0-0.2); Basophils % (auto) 1.1 % (0.0-2.0); Eosinophils # (auto) 0.7 10 ^3/uL (0-0.8); Eosinophils % (auto) 6.3 % (0.0-7.0); Hematocrit 37.7 % (41.0-53.0); Hemoglobin 12.5 g/dL (13.5-17.5); Lymphocytes # (auto) 1.2 10 ^3/uL (0.4-5.4); Lymphocytes % (auto) 10.7 % (10.0-50.0); Mean Corpuscular Hemoglobin 28.4 pg (28.0-32.0); Mean Corpuscular Volume 85.8 fL (80.0-100.0); Monocytes # (auto) 0.8 10 ^3/uL (0-1.3); Monocytes % (auto) 7.1 % (0.0-12.0); Neutrophils % (auto) 74.8 % (37.0-80.0); Nucleated Red Blood Cells % 0.1 %; White Blood Cell 10.7 10^3/uL (4.4-10.8)
[2021-06-01 06:23] LABS: Red Cell Distribution Width 20.3 % (11.8-14.3)
[2021-06-01 06:28] LABS: Anion Gap 5 (5-15); BUN/Creatinine Ratio 9.8; Blood Urea Nitrogen 10 mg/dL (7-18); Calcium 8.5 mg/dL (8.5-10.1); Carbon Dioxide 27 mmol/L (21-32); Chloride 103 mmol/L (98-107); GFR African American 94 mL/min; GFR Non-African American 77 mL/min; Glucose 96 mg/dL (74-106); Potassium 4.5 mmol/L (3.5-5.1); Sodium 135 mmol/L (136-145)
[2021-06-01] MEDS: InsuLIN REG 1unit/0.01ml Soln (100units/ml) SC SCH (07:00)
[2021-06-01] MEDS: ACCU-CHEK COMFORT CURVE STRIP VI SCH (07:17)
[2021-06-01] MEDS ORDERED: IODIXANOL 320MG/ML 100ML BTL IV ONE (07:46)
[2021-06-01] MEDS ORDERED: LIDOCAINE 2%HCL (LOCAL ANESTH.) INJ 10ml MDV ONE (07:47)
[2021-06-01] MEDS ORDERED: ANGIOMAX 250 MG VIAL IV ONE (08:13)
[2021-06-01] MEDS ORDERED: fentaNYL CITRATE 100 MCG/2 ML VL ONE (08:13)
[2021-06-01] MEDS ORDERED: VERAPAMIL 2.5MG/ML INJ 2ML VIAL IV ONE (08:13)
[2021-06-01] MEDS ORDERED: HEPARIN SODIUM (PORCINE) 5000 UNITS/ML 1ML VIAL ONE (08:13)
[2021-06-01] MEDS ORDERED: SODIUM CHL 0.9% 0 ML ONE (08:14)
[2021-06-01] MEDS ORDERED: diphenhdrAMINE HCL 50 MG/1 ML VL ONE (08:14)
[2021-06-01] MEDS ORDERED: MIDAZOLAM HCL 2MG/2ML 2ml VIAL (1mg/ml) ONE (08:14)
[2021-06-01] MEDS ORDERED: IOHEXOL 350 MG/ML 100ML IJ ONE (08:35)
[2021-06-01 09:20] VITALS: BP 159/98
[2021-06-01 09:35] VITALS: BP 159/76
[2021-06-01 09:50] VITALS: BP 159/76
[2021-06-01 10:05] VITALS: BP 132/90
== END 2021-06-01 13:09 | disposition left against medical advice (07) | DRG 280 ==
LOC: TELE-WESTW 16:15
PROVIDERS: ADMIT Internal Medicine; ATTEND Internal Medicine
PROC: B2111ZZ Fluoroscopy of Multiple Coronary Arteries using Low Osmolar Contrast (ICD-10-PCS; principal; 2021-06-01)
DX: I21.4 Non-ST elevation (NSTEMI) myocardial infarction (principal); J18.9 Pneumonia, unspecified organism; I47.1 Supraventricular tachycardia; J96.11 Chronic respiratory failure with hypoxia; J44.0 Chronic obstructive pulmonary disease with (acute) lower respiratory infection; E11.9 Type 2 diabetes mellitus without complications; E66.9 Obesity, unspecified; E78.5 Hyperlipidemia, unspecified; F14.90 Cocaine use, unspecified, uncomplicated; I10 Essential (primary) hypertension; Z53.29 Procedure and treatment not carried out because of patient's decision for other reasons; I25.10 Atherosclerotic heart disease of native coronary artery without angina pectoris; I25.2 Old myocardial infarction; Z79.01 Long term (current) use of anticoagulants; Z79.82 Long term (current) use of aspirin; Z79.899 Other long term (current) drug therapy; Z82.49 Family history of ischemic heart disease and other diseases of the circulatory system; Z83.3 Family history of diabetes mellitus; Z91.19 Patient's noncompliance with other medical treatment and regimen
CPT/HCPCS: 36415; 73080; 73100; 73502; 73560; 80048; 82962; 85025; 85610; 85730; 93306; 93454; 99152; 99153; C9113; G0378; J2001; J2250; Q9967

== ENCOUNTER 2021-07-01 04:55 | Inpatient (IN) | payer OTHER ==
[~2021-07-01] VITALS: Ht 165.1 cm; Wt 106.0 kg
[2021-07-01] VITALS (12 sets, daily range): BP systolic 134–181; BP diastolic 80–108
[2021-07-01 07:50] LABS: Basophils # (auto) 0 10 ^3/uL (0-0.2); Basophils % (auto) 0.6 % (0.0-2.0); Eosinophils # (auto) 0 10 ^3/uL (0-0.8); Eosinophils % (auto) 0.1 % (0.0-7.0); Hematocrit 34.8 % (41.0-53.0); Hemoglobin 11.5 g/dL (13.5-17.5); Lymphocytes # (auto) 0.5 10 ^3/uL (0.4-5.4); Lymphocytes % (auto) 7.3 % (10.0-50.0); Mean Corpuscular Hemoglobin 29.3 pg (28.0-32.0); Mean Corpuscular Volume 88.8 fL (80.0-100.0); Monocytes # (auto) 0 10 ^3/uL (0-1.3); Monocytes % (auto) 0.6 % (0.0-12.0); Neutrophils # (auto) 6.9 10 ^3/uL (1.6-8.6); Neutrophils % (auto) 91.4 % (37.0-80.0); Nucleated Red Blood Cells % 0.1 %; Red Blood Cells 3.92 10^6/uL (4.5-5.90); Red Cell Distribution Width 20.6 % (11.8-14.3); White Blood Cell 7.5 10^3/uL (4.4-10.8)
[2021-07-01 08:56] LABS: BUN/Creatinine Ratio 8.8; Calcium 8.9 mg/dL (8.5-10.1)
[2021-07-01] MEDS ORDERED: ALBUTEROL SULF 2.5 MG/0.5ML(0.5%) NEB SOLN NEB SCH (10:00)
[2021-07-01] MEDS ORDERED: METOPROLOL TARTRATE 25 MG TAB PO SCH (10:00)
[2021-07-01] MEDS ORDERED: ASPirin-EC 81 mg tab PO SCH (10:00)
[2021-07-01] MEDS ORDERED: ENOXAPARIN SOD 120 MG/0.8 ML SYRINGE SC SCH (10:00)
[2021-07-01] MEDS ORDERED: ERYTHROMYCIN LACTOBIONATE 500 MG in SODIUM CHL 0.9% 250 ML IV SCH (10:00)
[2021-07-01] MEDS: hydrALAZINE HCL 20 MG/ML VL IV PRN ×2 (10:10→15:57)
[2021-07-01] MEDS ORDERED: AZITHROMYCIN 500MG/ 250ML 250 ML IV SCH (11:30)
[2021-07-01] MEDS: ALBUTEROL SULF 2.5 MG/0.5ML(0.5%) NEB SOLN NEB SCH ×2 (13:46→18:51)
[2021-07-01] MEDS: IPRATROPIUM BROM 0.5 MG/2.5ML INH SOL NEB SCH ×2 (13:46→18:51)
[2021-07-01 14:18] LABS: Alcohol, Urine < 3.0 mg/dL (0-10); Amphetamine Screen, Urine NEGATIVE (NEGATIVE); Barbiturate Scree,Urine NEGATIVE (NEGATIVE); Benzodiazephine Screen, Urine POSITIVE (NEGATIVE); Cannabinoid Screen, Urine NEGATIVE (NEGATIVE); Cocaine Screen, Urine POSITIVE (NEGATIVE)
[2021-07-01 14:25] LABS: Opiate Scree,Urine NEGATIVE (NEGATIVE); Phencyclidine Screen, Urine NEGATIVE (NEGATIVE)
[2021-07-01] MEDS ORDERED: ALPRAZolam 0.5 MG TAB PO PRN (16:15)
[2021-07-01] MEDS ORDERED: FUROSEMIDE 40 MG/4 ML VIAL IV SCH (18:00)
[2021-07-01] MEDS ORDERED: cefTRIAXone 1GM/50ML D5W 50 ML IV SCH (21:00)
[2021-07-01] MEDS ORDERED: ATORVASTATIN 20 MG TAB PO SCH (22:00)
[2021-07-01] MEDS ORDERED: POTASSIUM CHL 20 Meq TABLET PO SCH (22:00)
== END 2021-07-01 19:53 | disposition left against medical advice (07) | DRG 280 ==
LOC: DOU IN ICU 04:55
PROVIDERS: ADMIT Hospitalist; ATTEND Hospitalist
DX: I21.4 Non-ST elevation (NSTEMI) myocardial infarction (principal); J18.9 Pneumonia, unspecified organism; J96.21 Acute and chronic respiratory failure with hypoxia; J44.1 Chronic obstructive pulmonary disease with (acute) exacerbation; I42.2 Other hypertrophic cardiomyopathy; I16.1 Hypertensive emergency; F14.10 Cocaine abuse, uncomplicated; Z53.29 Procedure and treatment not carried out because of patient's decision for other reasons; E78.5 Hyperlipidemia, unspecified; I11.0 Hypertensive heart disease with heart failure; Z87.891 Personal history of nicotine dependence; Z91.14 Patient's other noncompliance with medication regimen
CPT/HCPCS: 36415; 36600; 71045; 80048; 80307; 82805; 84484; 85025; 87081; 93005; 94640; G0378

== ENCOUNTER 2022-06-08 23:14 | Inpatient (IN) | payer OTHER ==
[~2022-06-08] VITALS: Ht 172.7 cm; Wt 102.8 kg
[2022-06-08 23:58] VITALS: BP 201/95
[2022-06-09] MEDS ORDERED: ACETAMINOPHEN 325 MG TAB PO PRN (00:15)
[2022-06-09] MEDS ORDERED: MORPHINE SULFATE INJ 2 MG/ml SYRG IV PRN (00:15)
[2022-06-09] MEDS ORDERED: NITROGLYCERIN 0.4 MG SL TAB SL PRN (00:15)
[2022-06-09] MEDS ORDERED: hydrALAZINE HCL 20 MG/ML VL IV PRN ×2 (00:15→03:45)
[2022-06-09] MEDS ORDERED: METOCLOPRAMIDE HCL 5MG/ml INJ 2ml VIAL IV PRN (00:15)
[2022-06-09] MEDS ORDERED: DOCUSATE SOD 100 MG CAP PO PRN (00:15)
[2022-06-09] MEDS: MORPHINE SULFATE INJ 2 MG/ml SYRG IV PRN ×2 (00:47→08:26)
[2022-06-09] MEDS: levoFLOXacin 500MG 100 ML IV SCH ×2 (01:04→22:53)
[2022-06-09 01:10] LABS: Basophils # (auto) 0 10 ^3/uL (0-0.2); Basophils % (auto) 0.2 % (0.0-2.0); Eosinophils # (auto) 0 10 ^3/uL (0-0.8); Hematocrit 39.3 % (41.0-53.0); Hemoglobin 13.2 g/dL (13.5-17.5); Lymphocytes # (auto) 0.8 10 ^3/uL (0.4-5.4); Lymphocytes % (auto) 7.5 % (10.0-50.0); Mean Corpuscular Hemoglobin 29.4 pg (28.0-32.0); Mean Corpuscular Hgb Conc. 33.6 g/dL (32.0-36.0); Mean Corpuscular Volume 87.5 fL (80.0-100.0); Monocytes # (auto) 0.5 10 ^3/uL (0-1.3); Monocytes % (auto) 4.6 % (0.0-12.0); Neutrophils # (auto) 8.9 10 ^3/uL (1.6-8.6); Neutrophils % (auto) 87.7 % (37.0-80.0); Nucleated Red Blood Cells % 0.1 %; Red Blood Cells 4.49 10^6/uL (4.5-5.90); Red Cell Distribution Width 19.7 % (11.8-14.3); White Blood Cell 10.2 10^3/uL (4.4-10.8)
[2022-06-09 01:31] LABS: Albumin 3.2 g/dL (3.4-5.0); Calcium 8.1 mg/dL (8.5-10.1); Potassium 4.1 mmol/L (3.5-5.1)
[2022-06-09 01:34] LABS: Bilirubin, Total 0.4 mg/dL (0.2-1.0); Total Protein 8.8 g/dL (6.4-8.2)
[2022-06-09] MEDS ORDERED: LISI20TA28 PO (01:46)
[2022-06-09] MEDS ORDERED: MIN25T PO (01:46)
[2022-06-09 02:45] VITALS: BP 201/95
[2022-06-09] MEDS: NIFEdipine ER 30 MG TAB PO SCH (04:50)
[2022-06-09 04:58] VITALS: BP 155/89
[2022-06-09] MEDS ORDERED: FUROSEMIDE 40 MG/4 ML VIAL IV SCH (06:00)
[2022-06-09 06:04] LABS: Basophils # (auto) 0.1 10 ^3/uL (0-0.2); Basophils % (auto) 0.6 % (0.0-2.0); Eosinophils # (auto) 0 10 ^3/uL (0-0.8); Lymphocytes # (auto) 0.9 10 ^3/uL (0.4-5.4); Lymphocytes % (auto) 9.1 % (10.0-50.0); Mean Corpuscular Hemoglobin 30.4 pg (28.0-32.0); Mean Corpuscular Hgb Conc. 34.3 g/dL (32.0-36.0); Mean Corpuscular Volume 88.7 fL (80.0-100.0); Monocytes # (auto) 0.7 10 ^3/uL (0-1.3); Monocytes % (auto) 7.3 % (0.0-12.0); Neutrophils # (auto) 8.2 10 ^3/uL (1.6-8.6); Red Blood Cells 4.28 10^6/uL (4.5-5.90); Red Cell Distribution Width 19.2 % (11.8-14.3); White Blood Cell 9.9 10^3/uL (4.4-10.8)
[2022-06-09 06:25] LABS: Calcium 8.3 mg/dL (8.5-10.1); Potassium 4.4 mmol/L (3.5-5.1)
[2022-06-09] MEDS: ALBUTEROL SULF 2.5 MG/0.5ML(0.5%) NEB SOLN NEB SCH ×3 (06:55→19:37)
[2022-06-09] MEDS: IPRATROPIUM BROM 0.5 MG/2.5ML INH SOL NEB SCH ×3 (06:55→19:37)
[2022-06-09 09:00] VITALS: BP 169/82
[2022-06-09] MEDS ORDERED: NIFEdipine ER 30 MG TAB PO SCH (10:00)
[2022-06-09] MEDS ORDERED: methylPREDNISolone SOD SUCC 125 MG/2 ML VL IV SCH (10:00)
[2022-06-09] MEDS ORDERED: PANTOPRAZOLE 40 MG/10 ML VIAL INJ IV SCH (10:00)
[2022-06-09] MEDS: METOPROLOL TARTRATE 25 MG TAB PO SCH ×2 (10:18→22:54)
[2022-06-09] MEDS: ASPirin 81 mg TAB PO SCH (10:18)
[2022-06-09] MEDS: ENOXAPARIN SOD 40 MG/0.4 ML SYRINGE SC SCH (10:19)
[2022-06-09 13:00] VITALS: BP 153/83
[2022-06-09 16:29] VITALS: BP 150/85
[2022-06-09] MEDS: FUROSEMIDE 20 MG/2 ML VIAL IV SCH (18:00)
[2022-06-09] MEDS: HYDROcodone-ACET 5/325MG TAB PO PRN ×2 (18:11→22:55)
[2022-06-09 22:00] VITALS: BP 156/84
[2022-06-09] MEDS ORDERED: ATORVASTATIN 20 MG TAB PO SCH (22:00)
[2022-06-09] MEDS: methylPREDNISolone SOD SUCC 40 MG/ML VL IV SCH (22:53)
[2022-06-10] MEDS: IPRATROPIUM BROM 0.5 MG/2.5ML INH SOL NEB SCH ×5 (00:49→18:51)
[2022-06-10] MEDS: ALBUTEROL SULF 2.5 MG/0.5ML(0.5%) NEB SOLN NEB SCH ×5 (00:49→18:51)
[2022-06-10] MEDS: HYDROcodone-ACET 5/325MG TAB PO PRN ×2 (03:54→11:26)
[2022-06-10 05:00] VITALS: BP 157/78
[2022-06-10] MEDS: FUROSEMIDE 20 MG/2 ML VIAL IV SCH (05:27)
[2022-06-10 06:20] LABS: Basophils # (auto) 0 10 ^3/uL (0-0.2); Basophils % (auto) 0.2 % (0.0-2.0); Eosinophils # (auto) 0 10 ^3/uL (0-0.8); Hemoglobin 13.8 g/dL (13.5-17.5); Lymphocytes # (auto) 0.6 10 ^3/uL (0.4-5.4); Lymphocytes % (auto) 4.6 % (10.0-50.0); Mean Corpuscular Hemoglobin 29.1 pg (28.0-32.0); Mean Corpuscular Hgb Conc. 32.9 g/dL (32.0-36.0); Mean Corpuscular Volume 88.4 fL (80.0-100.0); Monocytes # (auto) 0.4 10 ^3/uL (0-1.3); Monocytes % (auto) 3.1 % (0.0-12.0); Neutrophils % (auto) 92.1 % (37.0-80.0); Nucleated Red Blood Cells % 0.1 %; Red Blood Cells 4.75 10^6/uL (4.5-5.90); Red Cell Distribution Width 19.6 % (11.8-14.3); White Blood Cell 13.1 10^3/uL (4.4-10.8)
[2022-06-10 06:38] LABS: BUN/Creatinine Ratio 19.2 (10.0-20.0); Calcium 8.9 mg/dL (8.5-10.1)
[2022-06-10 08:00] VITALS: BP 158/86
[2022-06-10] MEDS: NIFEdipine ER 30 MG TAB PO SCH (09:10)
[2022-06-10] MEDS: METOPROLOL TARTRATE 25 MG TAB PO SCH (09:11)
[2022-06-10] MEDS: methylPREDNISolone SOD SUCC 40 MG/ML VL IV SCH (09:12)
[2022-06-10] MEDS: ASPirin 81 mg TAB PO SCH (09:12)
[2022-06-10] MEDS: ENOXAPARIN SOD 40 MG/0.4 ML SYRINGE SC SCH (09:13)
[2022-06-10 12:00] VITALS: BP 167/84
[2022-06-10] MEDS ORDERED: NIFEdipine ER 30 MG TAB PO ONE (14:00)
[2022-06-10] MEDS ORDERED: LEVO500T31 PO (14:07)
[2022-06-10] MEDS ORDERED: AMIODARONE HCL 200 MG TAB PO ONE (15:30)
[2022-06-10 17:00] VITALS: BP 170/72
[2022-06-10 17:15] VITALS: BP 173/72
[2022-06-11] MEDS ORDERED: NIFEdipine ER 30 MG TAB PO SCH (10:00)
[2022-06-11] MEDS ORDERED: FUROSEMIDE 40 MG TAB PO SCH (10:00)
[2022-06-11] MEDS ORDERED: predniSONE 20 MG TAB PO SCH (10:00)
== END 2022-06-10 19:09 | disposition home or self-care (01) | DRG 280 ==
LOC: TELE-WESTW 23:14 → INTOOBSV 23:14 → OBSVTOIN 06-10 10:21
PROVIDERS: ADMIT Internal Medicine; ATTEND Internal Medicine
DX: I21.4 Non-ST elevation (NSTEMI) myocardial infarction (principal); J18.9 Pneumonia, unspecified organism; J96.21 Acute and chronic respiratory failure with hypoxia; J44.1 Chronic obstructive pulmonary disease with (acute) exacerbation; J44.0 Chronic obstructive pulmonary disease with (acute) lower respiratory infection; I11.0 Hypertensive heart disease with heart failure; F17.210 Nicotine dependence, cigarettes, uncomplicated; I25.10 Atherosclerotic heart disease of native coronary artery without angina pectoris; I50.9 Heart failure, unspecified; I35.2 Nonrheumatic aortic (valve) stenosis with insufficiency; Z79.01 Long term (current) use of anticoagulants; Z79.82 Long term (current) use of aspirin; Z79.899 Other long term (current) drug therapy; Z98.61 Coronary angioplasty status; Z91.199 Patient's noncompliance with other medical treatment and regimen due to unspecified reason; Z83.3 Family history of diabetes mellitus; Z82.49 Family history of ischemic heart disease and other diseases of the circulatory system; Z83.49 Family history of other endocrine, nutritional and metabolic diseases
CPT/HCPCS: 36415; 71046; 80048; 80053; 84484; 85025; 93306; 94640; C9113; G0378; J1956

== ENCOUNTER 2022-07-05 05:39 | Inpatient (IN) | payer OTHER ==
[~2022-07-05] VITALS: Ht 172.7 cm; Wt 113.0 kg
[~2022-07-05 05:39] MED LIST changes: -AML5T PO; -CLON0.3D4 PO; +LEVO500T31 PO; +LISI20TA28 PO; +MIN25T PO; -NIFE1TAB30 PO; -WARF5TAB71 PO
[2022-07-05] MEDS ORDERED: IPRATROPIUM BROM 0.5 MG/2.5ML INH SOL NEB ONE (05:45)
[2022-07-05] MEDS ORDERED: FUROSEMIDE 100 MG/10ML VIAL IV ONE (05:45)
[2022-07-05] MEDS ORDERED: ALBUTEROL SULF 2.5 MG/0.5ML(0.5%) NEB SOLN NEB ONE ×2 (05:45→06:00)
[2022-07-05] MEDS ORDERED: methylPREDNISolone SOD SUCC 125 MG/2 ML VL IV ONE (05:45)
[2022-07-05] MEDS ORDERED: NITROGLYCERIN 0.4 MG SL TAB SL ONE (06:00)
[2022-07-05] MEDS ORDERED: NITROGLYCERIN 50MG/250ML 250 ML IV ONE (06:00)
[2022-07-05] MEDS: MAGNESIUM SULFATE 1GM/100ML 100 ML IV SCH ×2 (06:14→06:59)
[2022-07-05 06:25] LABS: Basophils # (auto) 0.1 10 ^3/uL (0-0.2); Basophils % (auto) 0.4 % (0.0-2.0); Eosinophils # (auto) 0.1 10 ^3/uL (0-0.8); Eosinophils % (auto) 0.6 % (0.0-7.0); Hematocrit 37.5 % (41.0-53.0); Lymphocytes # (auto) 1.2 10 ^3/uL (0.4-5.4); Lymphocytes % (auto) 5.5 % (10.0-50.0); Mean Corpuscular Hemoglobin 28.7 pg (28.0-32.0); Mean Corpuscular Volume 89.5 fL (80.0-100.0); Monocytes # (auto) 1.5 10 ^3/uL (0-1.3); Neutrophils # (auto) 18.3 10 ^3/uL (1.6-8.6); Neutrophils % (auto) 86.5 % (37.0-80.0); Nucleated Red Blood Cells % 0.1 %; Red Blood Cells 4.19 10^6/uL (4.5-5.90); White Blood Cell 21.2 10^3/uL (4.4-10.8)
[2022-07-05 06:30] LABS: Red Cell Distribution Width 20.5 % (11.8-14.3)
[2022-07-05] MEDS ORDERED: AMPICILLIN & SULBACTAM SODIUM 3 GM in SODIUM CHL 0.9% 100 ML IV SCH (06:30)
[2022-07-05] MEDS ORDERED: ASPirin 81 mg TAB PO ONE (06:30)
[2022-07-05 06:38] LABS: INR 1.08 (0.9-1.15)
[2022-07-05 06:40] LABS: Albumin 3.6 g/dL (3.4-5.0); Calcium 9.3 mg/dL (8.5-10.1); Magnesium 1.9 mg/dL (1.6-2.6); Potassium 4.8 mmol/L (3.5-5.1)
[2022-07-05 06:47] LABS: BUN/Creatinine Ratio 15.9 (10.0-20.0); Bilirubin, Total 0.5 mg/dL (0.2-1.0); Phosphorus 3.4 mg/dL (2.5-4.90)
[2022-07-05] MEDS ORDERED: LORazepam 2MG/ML-1ML VIAL IV ONE (07:00)
[2022-07-05] MEDS ORDERED: VANCOMYCIN 1GM/250ML 250 ML IV ONE (07:00)
[2022-07-05] MEDS ORDERED: MORPHINE SULFATE INJ 2 MG/ml SYRG IV PRN (08:15)
[2022-07-05] MEDS ORDERED: VANCOMYCIN PER PHARMACY 0 MG IV SCH (08:15)
[2022-07-05] MEDS ORDERED: NITROGLYCERIN 0.4 MG SL TAB SL PRN (08:15)
[2022-07-05] MEDS: AMIODARONE HCL 200 MG TAB PO SCH ×2 (10:32→21:40)
[2022-07-05] MEDS: METOPROLOL TARTRATE 25 MG TAB PO SCH ×2 (10:32→21:41)
[2022-07-05] MEDS: levoFLOXacin 500MG 100 ML IV SCH ×2 (10:33→10:40)
[2022-07-05] MEDS: NIFEdipine ER 30 MG TAB PO SCH (10:39)
[2022-07-05] MEDS ORDERED: ACETAMINOPHEN 325 MG TAB PO PRN (11:00)
[2022-07-05] MEDS: methylPREDNISolone SOD SUCC 40 MG/ML VL IV SCH ×2 (11:25→21:39)
[2022-07-05] MEDS: HYDROcodone-ACET 5/325MG TAB PO PRN ×3 (11:34→21:40)
[2022-07-05] MEDS: IPRATROPIUM BROM 0.5 MG/2.5ML INH SOL NEB SCH ×2 (12:18→19:04)
[2022-07-05] MEDS: ALBUTEROL SULF 2.5 MG/0.5ML(0.5%) NEB SOLN NEB SCH ×2 (12:18→19:04)
[2022-07-05 15:28] VITALS: BP 132/72
[2022-07-05] MEDS: FUROSEMIDE 40 MG/4 ML VIAL IV SCH (17:31)
[2022-07-05] MEDS: POTASSIUM CHL 20 Meq TABLET PO SCH (21:40)
[2022-07-05] MEDS: APIXABAN 5 MG TAB PO SCH (21:40)
[2022-07-05 21:58] VITALS: BP 151/61
[2022-07-05 23:17] VITALS: BP 151/61
[2022-07-06] MEDS: VANCOMYCIN 1GM/250ML 250 ML IV SCH ×2 (02:56→21:09)
[2022-07-06] MEDS: HYDROcodone-ACET 5/325MG TAB PO PRN ×3 (03:34→18:13)
[2022-07-06 05:00] VITALS: BP 153/72
[2022-07-06] MEDS: FUROSEMIDE 40 MG/4 ML VIAL IV SCH ×2 (05:04→18:12)
[2022-07-06] MEDS: ALBUTEROL SULF 2.5 MG/0.5ML(0.5%) NEB SOLN NEB SCH ×3 (07:13→18:31)
[2022-07-06] MEDS: IPRATROPIUM BROM 0.5 MG/2.5ML INH SOL NEB SCH ×3 (07:13→18:30)
[2022-07-06 09:00] VITALS: BP 138/69
[2022-07-06] MEDS: levoFLOXacin 500MG 100 ML IV SCH (09:48)
[2022-07-06] MEDS: APIXABAN 5 MG TAB PO SCH ×2 (09:49→21:07)
[2022-07-06] MEDS: methylPREDNISolone SOD SUCC 40 MG/ML VL IV SCH ×2 (09:49→21:08)
[2022-07-06] MEDS: AMIODARONE HCL 200 MG TAB PO SCH ×2 (09:49→21:06)
[2022-07-06] MEDS: POTASSIUM CHL 20 Meq TABLET PO SCH ×2 (09:50→21:08)
[2022-07-06] MEDS: NIFEdipine ER 30 MG TAB PO SCH (09:51)
[2022-07-06] MEDS: METOPROLOL TARTRATE 25 MG TAB PO SCH ×2 (09:51→21:07)
[2022-07-06 11:34] LABS: Basophils # (auto) 0 10 ^3/uL (0-0.2); Basophils % (auto) 0.3 % (0.0-2.0); Eosinophils # (auto) 0 10 ^3/uL (0-0.8); Hematocrit 34.7 % (41.0-53.0); Lymphocytes # (auto) 0.5 10 ^3/uL (0.4-5.4); Lymphocytes % (auto) 3.2 % (10.0-50.0); Mean Corpuscular Hemoglobin 28.6 pg (28.0-32.0); Mean Corpuscular Hgb Conc. 31.6 g/dL (32.0-36.0); Mean Corpuscular Volume 90.4 fL (80.0-100.0); Monocytes # (auto) 0.5 10 ^3/uL (0-1.3); Monocytes % (auto) 2.9 % (0.0-12.0); Neutrophils # (auto) 15.2 10 ^3/uL (1.6-8.6); Neutrophils % (auto) 93.6 % (37.0-80.0); Nucleated Red Blood Cells % 0.1 %; Red Blood Cells 3.84 10^6/uL (4.5-5.90); Red Cell Distribution Width 20.2 % (11.8-14.3); White Blood Cell 16.3 10^3/uL (4.4-10.8)
[2022-07-06 11:47] LABS: Calcium 8.9 mg/dL (8.5-10.1); Potassium 5.2 mmol/L (3.5-5.1)
[2022-07-06 11:49] LABS: BUN/Creatinine Ratio 22.3 (10.0-20.0)
[2022-07-06 13:00] VITALS: BP 148/76
[2022-07-06 17:00] VITALS: BP 140/79
[2022-07-06] MEDS: SODIUM ZIRCONIUM CYCL 10 GM PAK PO SCH (18:11)
[2022-07-06 18:20] LABS: INR 1.14 (0.9-1.15); Partial Thromboplastin Time 31.4 sec (24.6-33.4)
[2022-07-06 20:00] VITALS: BP 141/79
[2022-07-06 22:00] VITALS: BP 141/79
[2022-07-07] MEDS: HYDROcodone-ACET 5/325MG TAB PO PRN ×3 (00:23→13:56)
[2022-07-07 05:08] VITALS: BP 144/70
[2022-07-07 05:51] LABS: Basophils # (auto) 0 10 ^3/uL (0-0.2); Basophils % (auto) 0.1 % (0.0-2.0); Eosinophils # (auto) 0 10 ^3/uL (0-0.8); Hematocrit 34.4 % (41.0-53.0); Lymphocytes # (auto) 0.4 10 ^3/uL (0.4-5.4); Lymphocytes % (auto) 2.3 % (10.0-50.0); Mean Corpuscular Hemoglobin 28.5 pg (28.0-32.0); Mean Corpuscular Volume 89.1 fL (80.0-100.0); Monocytes # (auto) 0.6 10 ^3/uL (0-1.3); Neutrophils # (auto) 18.2 10 ^3/uL (1.6-8.6); Neutrophils % (auto) 94.6 % (37.0-80.0); Red Blood Cells 3.86 10^6/uL (4.5-5.90); White Blood Cell 19.3 10^3/uL (4.4-10.8)
[2022-07-07] MEDS: FUROSEMIDE 40 MG/4 ML VIAL IV SCH (05:56)
[2022-07-07] MEDS: IPRATROPIUM BROM 0.5 MG/2.5ML INH SOL NEB SCH ×2 (06:04→13:17)
[2022-07-07] MEDS: ALBUTEROL SULF 2.5 MG/0.5ML(0.5%) NEB SOLN NEB SCH ×2 (06:04→13:17)
[2022-07-07 06:14] LABS: Calcium 8.9 mg/dL (8.5-10.1); Potassium 4.6 mmol/L (3.5-5.1); Red Cell Distribution Width 20.5 % (11.8-14.3)
[2022-07-07 06:16] LABS: BUN/Creatinine Ratio 23.3 (10.0-20.0)
[2022-07-07 09:00] VITALS: BP 157/71
[2022-07-07] MEDS: levoFLOXacin 500MG 100 ML IV SCH (10:45)
[2022-07-07] MEDS: AMIODARONE HCL 200 MG TAB PO SCH (10:46)
[2022-07-07] MEDS: POTASSIUM CHL 20 Meq TABLET PO SCH (10:46)
[2022-07-07] MEDS: APIXABAN 5 MG TAB PO SCH (10:46)
[2022-07-07] MEDS: METOPROLOL TARTRATE 25 MG TAB PO SCH (10:47)
[2022-07-07] MEDS: NIFEdipine ER 30 MG TAB PO SCH (10:47)
[2022-07-07] MEDS: methylPREDNISolone SOD SUCC 40 MG/ML VL IV SCH (10:48)
[2022-07-07] MEDS: SODIUM ZIRCONIUM CYCL 10 GM PAK PO SCH (10:48)
[2022-07-07 13:00] VITALS: BP 150/80
[2022-07-07] MEDS: VANCOMYCIN 1GM/250ML 250 ML IV SCH (13:56)
[2022-07-07 16:36] VITALS: BP 159/80
[2022-07-07] MEDS ORDERED: PRED20TA2 PO (16:38)
[2022-07-07] MEDS ORDERED: POTA-220 PO (16:38)
[2022-07-07] MEDS ORDERED: BACDST PO (16:38)
[2022-07-07] MEDS ORDERED: FURO1TAB31 PO (16:38)
[2022-07-07 16:55] VITALS: BP 150/80
[2022-07-08] MEDS ORDERED: FUROSEMIDE 20 MG TAB PO SCH (10:00)
== END 2022-07-07 17:50 | disposition hospice, home (50) | DRG 189 ==
LOC: ER 05:39 → EDBD 05:39 → TELE 08:45 → TELE-WESTW 21:02
PROVIDERS: ADMIT Internal Medicine; ATTEND Internal Medicine
PROC: 5A09357 Assistance with Respiratory Ventilation, Less than 24 Consecutive Hours, Continuous Positive Airway Pressure (ICD-10-PCS; principal; 2022-07-05)
DX: J96.21 Acute and chronic respiratory failure with hypoxia (principal); I50.33 Acute on chronic diastolic (congestive) heart failure; J15.6 Pneumonia due to other Gram-negative bacteria; J15.9 Unspecified bacterial pneumonia; I13.0 Hypertensive heart and chronic kidney disease with heart failure and stage 1 through stage 4 chronic kidney disease, or unspecified chronic kidney disease; J44.1 Chronic obstructive pulmonary disease with (acute) exacerbation; J44.0 Chronic obstructive pulmonary disease with (acute) lower respiratory infection; I35.0 Nonrheumatic aortic (valve) stenosis; G89.29 Other chronic pain; Z51.5 Encounter for palliative care; E87.5 Hyperkalemia; F17.210 Nicotine dependence, cigarettes, uncomplicated; Z20.822 Contact with and (suspected) exposure to COVID-19; I25.10 Atherosclerotic heart disease of native coronary artery without angina pectoris; I48.91 Unspecified atrial fibrillation; N18.30 Chronic kidney disease, stage 3 unspecified; Z98.61 Coronary angioplasty status; Z79.899 Other long term (current) drug therapy; Z82.49 Family history of ischemic heart disease and other diseases of the circulatory system; Z83.3 Family history of diabetes mellitus; Z99.81 Dependence on supplemental oxygen
CPT/HCPCS: 36415; 36600; 71045; 80048; 80053; 80202; 80329; 82565; 82805; 83605; 83690; 83735; 83880; 84100; 84484; 85025; 85610; 85730; 87040; 87070; 87081; 87205; 87426; 87804; 93005; 94640; 94660; 96365; 96366; 96375; 99291; G0378; J1956

== ENCOUNTER 2022-08-17 01:28 | Inpatient (IN) | payer OTHER ==
[~2022-08-17] VITALS: Ht 172.7 cm; Wt 118.5 kg
[2022-08-17] VITALS (7 sets, daily range): BP systolic 98–141; BP diastolic 52–62
[~2022-08-17 01:28] MED LIST changes: +BACDST PO; -LISI20TA28 PO; +LISI20TA56 PO; -NIFE90TA49 PO; +NIFE90TA75 PO; +POTA-220 PO; +PRED20TA2 PO
[2022-08-17] MEDS ORDERED: HYDROcodone-ACET 5/325MG TAB PO PRN (02:00)
[2022-08-17] MEDS ORDERED: NITROGLYCERIN 0.4 MG SL TAB SL PRN (02:00)
[2022-08-17] MEDS ORDERED: IPRATROPIUM BROM 0.5 MG/2.5ML INH SOL NEB PRN (02:00)
[2022-08-17] MEDS ORDERED: DOCUSATE SOD 100 MG CAP PO PRN (02:00)
[2022-08-17] MEDS ORDERED: MORPHINE SULFATE INJ 2 MG/ml SYRG IV PRN (02:00)
[2022-08-17] MEDS ORDERED: ALBUTEROL SULF 2.5 MG/0.5ML(0.5%) NEB SOLN NEB PRN (02:00)
[2022-08-17] MEDS ORDERED: ONDANSETRON HCL 4 MG/2 ML VIAL IV PRN (02:00)
[2022-08-17] MEDS ORDERED: METO25TA93 PO (02:21)
[2022-08-17] MEDS ORDERED: AMLO1TAB23 PO (02:21)
[2022-08-17] MEDS ORDERED: ALBU108A5 PO (02:21)
[2022-08-17] MEDS ORDERED: ALPR2TAB6 PO (02:21)
[2022-08-17] MEDS ORDERED: CLON0.1T PO (02:21)
[2022-08-17] MEDS: MORPHINE SULFATE INJ 2 MG/ml SYRG IV PRN ×3 (02:40→17:38)
[2022-08-17 05:46] LABS: Basophils # (auto) 0 10 ^3/uL (0-0.2); Basophils % (auto) 0.2 % (0.0-2.0); Eosinophils # (auto) 0 10 ^3/uL (0-0.8); Hematocrit 28.3 % (41.0-53.0); Hemoglobin 9.2 g/dL (13.5-17.5); Lymphocytes # (auto) 0.4 10 ^3/uL (0.4-5.4); Lymphocytes % (auto) 4.2 % (10.0-50.0); Mean Corpuscular Hemoglobin 28.9 pg (28.0-32.0); Mean Corpuscular Hgb Conc. 32.4 g/dL (32.0-36.0); Mean Corpuscular Volume 89.1 fL (80.0-100.0); Monocytes # (auto) 0.2 10 ^3/uL (0-1.3); Monocytes % (auto) 1.7 % (0.0-12.0); Neutrophils # (auto) 9.6 10 ^3/uL (1.6-8.6); Neutrophils % (auto) 93.9 % (37.0-80.0); Nucleated Red Blood Cells % 0.1 %; Red Blood Cells 3.18 10^6/uL (4.5-5.90); Red Cell Distribution Width 19.5 % (11.8-14.3); White Blood Cell 10.3 10^3/uL (4.4-10.8)
[2022-08-17 06:02] LABS: Calcium 8.7 mg/dL (8.5-10.1); Potassium 4.9 mmol/L (3.5-5.1)
[2022-08-17] MEDS: FUROSEMIDE 40 MG/4 ML VIAL IV SCH ×2 (06:02→17:37)
[2022-08-17 06:05] LABS: BUN/Creatinine Ratio 14.7 (10.0-20.0)
[2022-08-17] MEDS: APIXABAN 5 MG TAB PO SCH ×2 (09:00→21:47)
[2022-08-17] MEDS ORDERED: PATIENTS OWN MEDICATION (Amlodipine Besylate 1 TAB) PO SCH (10:00)
[2022-08-17] MEDS: amLODIPine BESYLATE 5 MG TAB PO SCH (10:00)
[2022-08-17] MEDS: AMIODARONE HCL 200 MG TAB PO SCH ×2 (10:00→21:47)
[2022-08-17] MEDS: ALBUTEROL SULF 2.5 MG/0.5ML(0.5%) NEB SOLN NEB SCH ×4 (10:33→22:17)
[2022-08-17] MEDS: IPRATROPIUM BROM 0.5 MG/2.5ML INH SOL NEB SCH ×4 (10:33→22:17)
[2022-08-17] MEDS: methylPREDNISolone SOD SUCC 40 MG/ML VL IV SCH ×3 (11:04→21:47)
[2022-08-18] VITALS (7 sets, daily range): BP systolic 124–187; BP diastolic 57–81
[2022-08-18] MEDS: IPRATROPIUM BROM 0.5 MG/2.5ML INH SOL NEB SCH ×6 (01:55→22:23)
[2022-08-18] MEDS: ALBUTEROL SULF 2.5 MG/0.5ML(0.5%) NEB SOLN NEB SCH ×6 (01:55→22:22)
[2022-08-18] MEDS: MORPHINE SULFATE INJ 2 MG/ml SYRG IV PRN ×4 (04:29→22:56)
[2022-08-18] MEDS: methylPREDNISolone SOD SUCC 40 MG/ML VL IV SCH ×3 (06:09→22:57)
[2022-08-18] MEDS: FUROSEMIDE 40 MG/4 ML VIAL IV SCH ×2 (06:10→16:31)
[2022-08-18 06:54] LABS: White Blood Cell 20.1 10^3/uL (4.4-10.8)
[2022-08-18 06:57] LABS: Hematocrit 26.5 % (41.0-53.0); Hemoglobin 8.5 g/dL (13.5-17.5); Mean Corpuscular Hemoglobin 29.3 pg (28.0-32.0); Mean Corpuscular Hgb Conc. 32.1 g/dL (32.0-36.0); Mean Corpuscular Volume 91.2 fL (80.0-100.0); Red Cell Distribution Width 19.6 % (11.8-14.3)
[2022-08-18 06:59] LABS: Band Neutrophils % (manual) 0; Basophils % (manual) 0 (0.0-2.0); Blast Cells 0; Eosinophils % (manual) 0 (0-7); Metamyelocytes % 0; Myelocytes % 0; Promyelocytes % 0; Reactive Lymphocytes 0
[2022-08-18 07:02] LABS: Potassium 5.2 mmol/L (3.5-5.1)
[2022-08-18 07:07] LABS: BUN/Creatinine Ratio 20.3 (10.0-20.0); Calcium 8.5 mg/dL (8.5-10.1)
[2022-08-18] MEDS: amLODIPine BESYLATE 5 MG TAB PO SCH (08:43)
[2022-08-18] MEDS: AMIODARONE HCL 200 MG TAB PO SCH ×2 (08:43→22:57)
[2022-08-18] MEDS: APIXABAN 5 MG TAB PO SCH ×2 (08:43→22:57)
[2022-08-18 11:01] LABS: Lymphocytes % (manual) 1 (10.0-50.0); Monocytes % (manual) 2 (0-12)
[2022-08-18] MEDS ORDERED: hydrALAZINE HCL 20 MG/ML VL IV PRN (18:15)
[2022-08-19] MEDS: ALBUTEROL SULF 2.5 MG/0.5ML(0.5%) NEB SOLN NEB SCH ×6 (02:05→22:20)
[2022-08-19] MEDS: IPRATROPIUM BROM 0.5 MG/2.5ML INH SOL NEB SCH ×6 (02:05→22:20)
[2022-08-19] MEDS: MORPHINE SULFATE INJ 2 MG/ml SYRG IV PRN ×3 (04:15→20:12)
[2022-08-19 04:30] VITALS: BP 156/75
[2022-08-19] MEDS: FUROSEMIDE 40 MG/4 ML VIAL IV SCH ×2 (05:50→18:58)
[2022-08-19] MEDS: methylPREDNISolone SOD SUCC 40 MG/ML VL IV SCH ×3 (05:50→23:05)
[2022-08-19 06:01] LABS: Hematocrit 28.7 % (41.0-53.0); Mean Corpuscular Hemoglobin 28.9 pg (28.0-32.0); Mean Corpuscular Hgb Conc. 31.2 g/dL (32.0-36.0); Mean Corpuscular Volume 92.5 fL (80.0-100.0); Red Cell Distribution Width 19.7 % (11.8-14.3); White Blood Cell 23.6 10^3/uL (4.4-10.8)
[2022-08-19 06:02] LABS: Potassium 5.5 mmol/L (3.5-5.1)
[2022-08-19 06:06] LABS: BUN/Creatinine Ratio 21.1 (10.0-20.0); Calcium 8.5 mg/dL (8.5-10.1)
[2022-08-19 06:20] LABS: Basophils % (manual) 0 (0.0-2.0); Blast Cells 0; Eosinophils % (manual) 0 (0-7); Metamyelocytes % 0; Myelocytes % 0; Promyelocytes % 0; Reactive Lymphocytes 0
[2022-08-19 08:11] LABS: Band Neutrophils % (manual) 1; Lymphocytes % (manual) 2 (10.0-50.0); Monocytes % (manual) 2 (0-12)
[2022-08-19 09:21] VITALS: BP 150/70
[2022-08-19] MEDS: amLODIPine BESYLATE 5 MG TAB PO SCH (10:23)
[2022-08-19] MEDS: APIXABAN 5 MG TAB PO SCH ×2 (10:23→23:05)
[2022-08-19] MEDS: AMIODARONE HCL 200 MG TAB PO SCH ×2 (10:24→23:05)
[2022-08-19 12:49] VITALS: BP 151/73
[2022-08-19 16:28] VITALS: BP 170/79
[2022-08-19 23:27] VITALS: BP 163/77
[2022-08-19 23:35] VITALS: BP 147/83
[2022-08-20] MEDS: IPRATROPIUM BROM 0.5 MG/2.5ML INH SOL NEB SCH ×4 (02:22→14:18)
[2022-08-20] MEDS: ALBUTEROL SULF 2.5 MG/0.5ML(0.5%) NEB SOLN NEB SCH ×4 (02:22→14:18)
[2022-08-20 05:08] VITALS: BP 136/82
[2022-08-20] MEDS: FUROSEMIDE 40 MG/4 ML VIAL IV SCH (05:13)
[2022-08-20] MEDS: methylPREDNISolone SOD SUCC 40 MG/ML VL IV SCH ×2 (05:13→13:25)
[2022-08-20] MEDS: MORPHINE SULFATE INJ 2 MG/ml SYRG IV PRN ×2 (05:26→12:33)
[2022-08-20] MEDS: AMIODARONE HCL 200 MG TAB PO SCH (09:21)
[2022-08-20] MEDS: APIXABAN 5 MG TAB PO SCH (09:21)
[2022-08-20] MEDS: amLODIPine BESYLATE 5 MG TAB PO SCH (09:22)
[2022-08-20 09:24] VITALS: BP 155/78
[2022-08-20 13:00] VITALS: BP 155/69
[2022-08-20 13:30] VITALS: BP 155/69
[2022-08-20] MEDS ORDERED: METH4PAK PO (14:56)
[2022-08-20] MEDS ORDERED: ALBUAER3 IN (14:56)
== END 2022-08-20 17:05 | disposition hospice, home (50) | DRG 291 ==
LOC: TELE-WESTW 01:28
PROVIDERS: ADMIT Internal Medicine; ATTEND Internal Medicine
PROC: 5A09357 Assistance with Respiratory Ventilation, Less than 24 Consecutive Hours, Continuous Positive Airway Pressure (ICD-10-PCS; principal; 2022-08-18)
PROC: 5A09357 Assistance with Respiratory Ventilation, Less than 24 Consecutive Hours, Continuous Positive Airway Pressure (ICD-10-PCS; 2022-08-19)
DX: I13.0 Hypertensive heart and chronic kidney disease with heart failure and stage 1 through stage 4 chronic kidney disease, or unspecified chronic kidney disease (principal); I50.33 Acute on chronic diastolic (congestive) heart failure; J96.21 Acute and chronic respiratory failure with hypoxia; J44.1 Chronic obstructive pulmonary disease with (acute) exacerbation; I48.20 Chronic atrial fibrillation, unspecified; D72.829 Elevated white blood cell count, unspecified; D64.9 Anemia, unspecified; N18.9 Chronic kidney disease, unspecified; E11.22 Type 2 diabetes mellitus with diabetic chronic kidney disease; I35.0 Nonrheumatic aortic (valve) stenosis; E11.65 Type 2 diabetes mellitus with hyperglycemia; I25.10 Atherosclerotic heart disease of native coronary artery without angina pectoris; F19.90 Other psychoactive substance use, unspecified, uncomplicated; E66.01 Morbid (severe) obesity due to excess calories; Z91.199 Patient's noncompliance with other medical treatment and regimen due to unspecified reason; Z68.39 Body mass index [BMI] 39.0-39.9, adult; Z82.49 Family history of ischemic heart disease and other diseases of the circulatory system; Z83.3 Family history of diabetes mellitus; Z87.891 Personal history of nicotine dependence; Z99.81 Dependence on supplemental oxygen
CPT/HCPCS: 36415; 36600; 71045; 80048; 82805; 85007; 85025; 85027; 87086; 94640; 94660; G0378

== ENCOUNTER 2024-03-09 11:24 | Inpatient (IN) | payer OTHER ==
[~2024-03-09] VITALS: Ht 172.7 cm; Wt 67.9 kg
[2024-03-09] VITALS (7 sets, daily range): BP systolic 109–143; BP diastolic 65–84; PULSE 80–89; RESP 15–20; TEMP 98.2; O2SAT 95–100
[~2024-03-09 11:24] MED LIST changes: +ALPR2TAB6 PO; +AMLO1TAB23 PO; -ASPI81CH43 PO; -BACDST PO; -BACL20TA PO; +CLON0.1T PO; -LEVO500T31 PO; +METH4PAK PO; -METO25TA5 PO; +METO25TA93 PO; -POTA-220 PO; -PRED20TA2 PO
[2024-03-09] MEDS ORDERED: METOPROLOL TARTRATE 1MG/1ML-5ML VIAL IV ONE (11:35)
--- NOTE | 2024-03-09 11:39 | ED.PDOC ---
HPI Comments HPI: Poor Historian. 68-year-old male brought in by ambulance from home for four day history of nonspecific chest pain and shortness of breath. Patient uses oxygen at home 10 L through a oxygen concentrator but his machine broke and a can only go up to five. Patient was found by EMS to be tachycardic in the 160s and in SVT according to EMS. They gave him 6 mg of adenosine then 12 mg of adenosine. They said he cardioverted chemically for less than 2 minutes to a normal sinus rhythm but then went back again to tachycardia. Patient is extremely poor historian does not know any of his medications and what he takes for what reason. He is not sure if he is on blood thinners. Patient denies any drug abuse. SOB/CP x4 Days Brought in by Ambulance BS 247 Initial Vital Signs: Temp : BP:114/67 HR:156 RR:20 SpO2: 98 Past Medical History: CHF, COPD, HTN, CKF Past Surgical History: Denies Social History: Denies smoking, ETOH, or drug use. Medications: No medications. Allergies: NKDA REVIEW OF SYSTEMS: CONSTITUTIONAL: Denies acute: fever, diaphoresis, chills, generalized weakness. HEAD: Denies acute: headache, photophobia Eyes: Denies acute: Double vision, vision loss, eye pain, eye discharge. EARS: Denies acute: tinnitus, hearing loss, ear discharge, ear pain, THROAT: Denies acute: sore throat, swelling, difficulty swallowing , pain with swallowing, change in voice. NECK: Denies acute: neck pain, neck swelling, stiff neck. HEART: Denies acute : LUNGS: Denies acute: , wheezing, cough, hemoptysis ABDOMEN: Denies acute: abdominal pain, Nausea, Vomiting, diarrhea, melena , hematemesis, hematochezia SKIN: Denies acute: rash, redness, lesions, itchiness. EXTREMITIES: Denies acute: calf pain, numbness, tingling, weakness, denies pain in extremity. Denies acute: Low back pain. Neuro: Denies acute: focal neurological deficit, motor or sensory focal neurological deficit, tremors, seizure like activity, confusion, dizziness, change in mental status, loss of bowel or bladder function, cauda equina like symptoms. : Denies acute: dysuria, hematuria, flank pain, increase in urinary frequency. PSYCH: Denies acute: hallucination, suicidal ideation, homicidal ideation. PHYSICAL EXAM: General: Mild to moderate acute distress, awake and alert. Head: normocephalic, atraumatic. Neck: supple, trachea is midline, no swelling. Throat: Normal phonation. Eyes:, no erythema, no purulent discharge, no proptosis, no icterus. Heart: regular tachycardic, no significant murmur appreciated. Lungs: Mild respiratory distress, Able to speak in full sentences. No wheezing, no rhonchi, no crackles. No stridors Clear to auscultation bilaterally. Abdomen: non tender to palpation, non distended, soft, no guarding, no rebound, + bowel sounds. Noted abdominal hernia. Neuro: Awake, Alert, oriented to name, self, situation, follows commands GCS=15. Speech is normal. Skin: no petechia, no purpura, no cyanosis, non-pale, not jaundice. Lower extremities: --trace- Pitting edema no deformity, no focal swelling, no calf TTP. Makes eye contact. moves all four extremities. Face: no apparent facial droop. Chief Complaint: Chest Pain Time Seen by MD: 11:30 Primary Care Provider: GIOVANNY Reviewed Notes: Nurses Notes, City Recorder Notes, Medications, Allergies Allergies: Coded Allergies: NO KNOWN ALLERGIES (Unverified , 03/23/20) Home Meds Active Scripts Methylprednisolone (Medrol Dosepak) 4 Mg Luigi, 4 MG PO UD, #21 TAB UAD Prov:JIMBO BARKLEY MD 08/20/22 Albuterol Sulfate (VENTOLIN MDI) 90 Mcg Ih, 90 MCG IN Q6HPRN PRN for SHORTNESS OF BREATH, #1 INHALER Prov:JIMBO BARKLEY MD 08/20/22 Furosemide (Lasix) 40 Mg Tab, 40 MG PO BID, #60 TAB Prov:JOSE JAMES MD 07/07/22 Nifedipine (Nifedipine Er) 90 Mg Tab, 90 MG PO DAILY, #30 TAB Prov:JOSE JAMES MD 03/25/20 Apixaban Base (ELIQUIS) 5 Mg Tab, 5 MG OR BID, #60 MG Prov:JOSE JAMES MD 03/24/20 Potassium Chloride (Potassium Chloride ER) 20 Meq Tab, 20 MEQ PO DAILY, #30 MG Prov:JOSE JAMES MD 03/24/20 Albuterol Sulfate (Albuterol Sulfate) 0.083 % Neb, 0.083 % NEB Q6HPRN PRN, #120 VIAL Prov:JOSE JAMES MD 03/24/20 Amiodarone Hcl (Amiodarone Hcl) 200 Mg Tab, 200 MG PO BID, #60 TAB Prov:JOSE JAMES MD 03/24/20 Reported Medications Clonidine Hydrochloride (Clonidine Hcl) 0.1 Mg Tab, 1 TAB PO BID 08/17/22 Amlodipine Besylate (Amlodipine Besylate) 10 Mg Tab, 1 TAB PO DAILY 08/17/22 Metoprolol Succinate (Metoprolol Succinate Er) 25 Mg Tab, 1 TAB PO DAILY 08/17/22 Alprazolam (Alprazolam) 2 Mg Tab, 1 TAB PO TID PRN for anxiety 08/17/22 Minoxidil (Loniten) 2.5 Mg Tb, 2 TAB PO BID 06/09/22 Lisinopril (Lisinopril) 20 Mg Tab, 1 TAB PO DAILY 06/09/22 Information Source: Patient, Emergency Med Personnel Mode of Arrival: EMS Severity: Moderate Timing: Days Duration: Days Prehospital treatment: 12 Lead EKG, Accucheck Location: Substernal Radiation: No Radiation Cardiac Risk Factors: None PE Risk Factors: None History of: None Associated Signs and Symptoms: SOB Was a procedure done? Was a procedure done?: No X-Ray, Labs, Meds, VS Vital Signs Date Time Temp Pulse Resp B/P (MAP) Pulse Ox O2 Delivery O2 Flow Rate FiO2 03/09/24 13:27 88 133/98 03/09/24 13:26 87 133/98 03/09/24 13:00 88 22 133/98 (110) 99 03/09/24 12:56 87 03/09/24 12:45 79 139/79 03/09/24 12:27 127/73 03/09/24 11:45 166 105/66 03/09/24 11:35 89 19 99 Nasal Cannula* 4 36 03/09/24 11:30 98.0 158 20 141/107 (118) 98 03/09/24 11:30 140 18 105/66 (79) 98 03/09/24 11:28 159 Lab Test 03/09/24 13:20 03/09/24 12:03 Range/Units Troponin I High Sensitivity 69 *H 81 *H </=54 ng/L Sodium Level 137 136-145 mmol/L Potassium Level 3.6 3.5-5.1 mmol/L Chloride Level 102 98-107 mmol/L Carbon Dioxide Level 24 20-31 mmol/L Anion Gap 11 5-15 Blood Urea Nitrogen 15 9-23 mg/dL Creatinine 1.62 H 0.700-1.30 mg/dL Glomerular Filtration Rate Calc 45 >90 mL/min BUN/Creatinine Ratio 9.3 L 10.0-20.0 Serum Glucose 196 H 74-106 mg/dL Lactic Acid Level 2.4 *H 0.4-2.0 mmol/L Calcium Level 9.7 8.7-10.4 mg/dL Magnesium Level 1.7 1.6-2.6 mg/dL Total Bilirubin 0.3 0.2-1.0 mg/dL Aspartate Amino Transferase (AST) 29 13-40 U/L Alanine Aminotransferase (ALT) 10 7-40 U/L Alkaline Phosphatase 90 46-116 U/L Total Protein 8.5 H 5.7-8.2 g/dL Albumin 4.2 3.2-4.8 g/dL Current Medications Medications (Trade) Dose Ordered Sig/Norah Route Start Time Stop Time Status Last Admin Metoprolol Tartrate (Lopressor) 5 mg Q5M IV 03/09/24 11:45 03/09/24 13:40 DC 03/09/24 11:45 Furosemide (Lasix Injection) 40 mg ONCE ONCE IV 03/09/24 11:45 03/09/24 11:49 DC 03/09/24 12:27 Piperacillin Sod/ Tazobactam Sod 100 ml @ 100 mls/hr ONCE ONCE IV 03/09/24 12:15 03/09/24 13:14 DC 03/09/24 13:[address] [address] Ph: [phone] DIAGNOSTIC IMAGING Diagnostic Imaging Report : [id number] Signed PATIENT: SANTIAGO MAYERS FACCT: [id number] UNIT: [id number] : 1955 LOC: ER ROOM / BED: / AGE / SEX: 68 / M ADM STATUS: REG ER SERVICE 1135 ORDERING PHYSICIAN: JOANNA IRENE DO PROCEDURE(s): CXRP - CHEST PORTABLE REASON: SOB, tach ORDER NUMBER(s): [id number], ACCESSION NUMBER(s): [id number] CHEST RADIOGRAPH Indication: SOB, tach Technique: Single frontal view of the chest was obtained COMPARISON: XY CHEST PORTABLE on DOS: 08/17/22, XY CHEST XRAY 1 VIEW on DOS: 07/05/22, CHEST XRAY 1 VIEW on DOS: 07/01/21, CXR1 on DOS: 07/01/21 FINDINGS: Lines and Tubes: None Lungs: Multifocal airspace disease. Pleura: No effusion. No pneumothorax. Cardiomediastinal contours: Cardiomegaly Bones: Unremarkable IMPRESSION: Multifocal airspace disease. ATED BY: JUAN PABLO BUITRAGO MD DICTATED DATE/TIME: 03/09/24 1149 SIGNED BY: JUAN PABLO BUITRAGO MD SIGNED DATE/TIME: 03/09/24 1149 CC: Time of 1ST Reevaluation: 12:00 Reevaluation 1ST: Resolved Comments Patient presented with 68-year-old male brought in by ambulance from home for four day history of nonspecific chest pain and shortness of breath. a workup was initiated. patient was found with the above mentioned diagnosis. the following medications were ordered: ASPIRIN 325 , PIPERACILLIN, FLOROSEMIDE 40 MG, CEFTRIAXONE the following tests were ordered: LABS, UA, CXR, EKG Patient ED course and VS have been stabilized. Patient has been reassessed in the ED and remained in a stable condition. Pertinent incidental findings were discussed with the patient and/or family. Patient/family voices understanding and is agreeable with plan. Patient has been observed in the ED adequate length of time to insure improvement/stability. Escalation of care considered: Consideration of escalation to observation or admission Patient was ADMITTED to the medicine team for further evaluation and treatment of their presentation. All the reports of any imaging studies that were ordered by myself were reviewed by myself. Departure 1 Departure Time of Disposition: 12:15 Impression: Primary Impression: SVT (supraventricular tachycardia) Additional Impressions: Multifocal pneumonia CHF exacerbation Noncompliance with medication regimen Cocaine abuse Disposition: ADMITTED INPATIENT Admit to: Tele Condition: Guarded Discharged With: Self I personally scribed for JOANNA IRENE DO ([email or web address]) on 03/09/24 at 11:39. Electronically submitted by Makayla Mckeon ([email or web address]). I personally scribed for JOANNA IRENE DO ([email or web address]) on 03/09/24 at 12:03. Electronically submitted by Makayla Mckeon ([email or web address]). I personally scribed for JOANNA IRENE DO ([email or web address]) on 03/09/24 at 14:02. Electronically submitted by Makayla Mckeon ([email or web address]). I personally scribed for JOANNA IRENE DO ([email or web address]) on 03/09/24 at 22:19. Electronically submitted by Makayla Mckeon ([email or web address]). JOANNA IRENE DO Mar 09, 2024 11:39
[2024-03-09] MEDS: METOPROLOL TARTRATE 1MG/1ML-5ML VIAL IV SCH (11:45)
[2024-03-09] MEDS ORDERED: cefTRIAXone 1GM/50ML D5W 50 ML IV ONE (11:45)
--- NOTE | 2024-03-09 11:51 | DVH ---
CHEST RADIOGRAPH Indication: SOB, tach Technique: Single frontal view of the chest was obtained COMPARISON: XY CHEST PORTABLE on DOS: 08/17/22, XY CHEST XRAY 1 VIEW on DOS: 07/05/22, CHEST XRAY 1 VIEW on DOS: 07/01/21, CXR1 on DOS: 07/01/21 FINDINGS: Lines and Tubes: None Lungs: Multifocal airspace disease. Pleura: No effusion. No pneumothorax. Cardiomediastinal contours: Cardiomegaly Bones: Unremarkable IMPRESSION: Multifocal airspace disease.
[2024-03-09] MEDS: FUROSEMIDE 40 MG/4 ML VIAL IV ONE (12:27)
[2024-03-09] MEDS: PIPERACILLIN-TAZOB 3.375GM 100 ML IV ONE (13:27)
[2024-03-09 13:30] LABS: Lactic Acid w/Reflex 2.4 mmol/L (0.4-2.0)
[2024-03-09 13:50] LABS: Alanine Aminotransferase 10 U/L (7-40); Albumin 4.2 g/dL (3.2-4.8); Alkaline Phosphatase 90 U/L (46-116); Anion Gap 11 (5-15); Aspartate Aminotransferase 29 U/L (13-40); BUN/Creatinine Ratio 9.3 (10.0-20.0); Blood Urea Nitrogen 15 mg/dL (9-23); Calcium 9.7 mg/dL (8.7-10.4); Carbon Dioxide 24 mmol/L (20-31); Chloride 102 mmol/L (98-107); Magnesium 1.7 mg/dL (1.6-2.6); Potassium 3.6 mmol/L (3.5-5.1); Sodium 137 mmol/L (136-145)
[2024-03-09 13:51] LABS: Bilirubin, Total 0.3 mg/dL (0.2-1.0)
[2024-03-09 13:52] LABS: Glucose 196 mg/dL (74-106); Total Protein 8.5 g/dL (5.7-8.2)
[2024-03-09] MEDS ORDERED: DEXTROSE (50%) 50ML SYRG IV PRN (14:15)
[2024-03-09] MEDS ORDERED: ACETAMINOPHEN 325 MG TAB PO PRN (14:15)
[2024-03-09] MEDS ORDERED: NITROGLYCERIN 0.4 MG SL TAB SL PRN (14:15)
[2024-03-09] MEDS: AZITHROMYCIN 500MG/ 250ML 250 ML IV ONE (14:15)
[2024-03-09] MEDS: ASPirin 325 MG TAB PO ONE (14:27)
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
[2024-03-09] MEDS: ONDANSETRON HCL 4 MG/2 ML VIAL IV PRN (15:29)
[2024-03-09] MEDS: MORPHINE SULFATE INJ 2 MG/ml SYRG IV PRN (15:30)
[2024-03-09 15:33] LABS: Urine Bacteria None Seen /hpf (None Seen)
[2024-03-09] MEDS: cefTRIAXone 1GM/50ML D5W 50 ML IV ONE (15:40)
[2024-03-09 16:04] LABS: Urine Blood Negative /uL (Negative); Urine Clarity Clear (Clear); Urine Color Light-Yellow (Yellow); Urine Hyaline Cast FEW /lpf (0 - 2); Urine Protein, UAD Negative (Negative); Urine Specific Gravity 1.007 (1.001-1.035); Urine Squamous Epithelial Cell None Seen /hpf (<5); Urine Urobilinogen Normal (Negative); Urine WBC 15 /hpf (0 - 3); Urine pH 6.5 (5.0-9.0)
[2024-03-09 16:18] LABS: Amphetamine Screen, Urine Neg (NEGATIVE); Barbiturate Scree,Urine Neg (NEGATIVE); Benzodiazephine Screen, Urine Neg (NEGATIVE); Cannabinoid Screen, Urine Neg (NEGATIVE); Cocaine Screen, Urine Pos (NEGATIVE); Opiate Scree,Urine Neg (NEGATIVE); Phencyclidine Screen, Urine Neg (NEGATIVE)
[2024-03-09] MEDS: InsuLIN REG 1unit/0.01ml Soln (100units/ml) SC SCH (17:00)
[2024-03-09] MEDS: ACCU-CHEK COMFORT CURVE STRIP VI SCH (17:18)
[2024-03-09 18:41] LABS: Basophils # (auto) 0.1 10 ^3/uL (0-0.2); Basophils % (auto) 0.9 % (0.0-2.0); Eosinophils # (auto) 0.2 10 ^3/uL (0-0.8); Eosinophils % (auto) 1.5 % (0.0-7.0); Hematocrit 36.4 % (41.0-53.0); Hemoglobin 11.3 g/dL (13.5-17.5); Lymphocytes # (auto) 1.7 10 ^3/uL (0.4-5.4); Lymphocytes % (auto) 11.6 % (10.0-50.0); Mean Corpuscular Hemoglobin 25.9 pg (28.0-32.0); Mean Corpuscular Hgb Conc. 31.1 g/dL (32.0-36.0); Mean Corpuscular Volume 83.3 fL (80.0-100.0); Monocytes # (auto) 1.5 10 ^3/uL (0-1.3); Monocytes % (auto) 10.7 % (0.0-12.0); Neutrophils # (auto) 10.9 10 ^3/uL (1.6-8.6); Neutrophils % (auto) 75.3 % (37.0-80.0); Nucleated Red Blood Cells % 0.1 %; Platelet Count (auto) 244 10^3/uL (140-450); Red Blood Cells 4.37 10^6/uL (4.5-5.90); Red Cell Distribution Width 19.2 % (11.8-14.3); White Blood Cell 14.4 10^3/uL (4.4-10.8)
[2024-03-09] MEDS: IPRATROPIUM BROM 0.5 MG/2.5ML INH SOL NEB SCH (19:00)
[2024-03-09] MEDS: ALBUTEROL SULF 2.5 MG/0.5ML(0.5%) NEB SOLN NEB SCH (19:00)
[2024-03-09] MEDS: ATORVASTATIN 20 MG TAB PO SCH (21:46)
[2024-03-09] MEDS: HYDROcodone-ACET 5/325MG TAB PO PRN (21:47)
[2024-03-09 22:25] LABS: COVID19 ANTIGEN SOFIA FIA NEGATIVE (NEGATIVE)
[2024-03-09 22:26] LABS: Rapid Influenza A Negative (Negative); Rapid Influenza B Negative (Negative)
[2024-03-10] VITALS (16 sets, daily range): BP systolic 111–151; BP diastolic 71–99; PULSE 68–155; RESP 16–22; TEMP 97.5–99.5; O2SAT 95–100
--- NOTE | 2024-03-10 09:46 | ECG ---
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
[2024-03-10] MEDS ORDERED: AZITHROMYCIN 500MG/ 250ML 250 ML IV SCH (10:00)
[2024-03-10] MEDS: ASPirin 81 mg TAB PO SCH (10:05)
[2024-03-10] MEDS: ENOXAPARIN SOD 40 MG/0.4 ML SYRINGE SC SCH (10:06)
[2024-03-10] MEDS: cefTRIAXone 1GM/50ML D5W 50 ML IV SCH (10:07)
[2024-03-10 10:46] LABS: Hemoglobin 10.9 g/dL (13.5-17.5); Lymphocytes # (auto) 1.3 10 ^3/uL (0.4-5.4); Mean Corpuscular Hemoglobin 26.3 pg (28.0-32.0); Monocytes # (auto) 1.6 10 ^3/uL (0-1.3)
[2024-03-10 10:48] LABS: Basophils # (auto) 0.1 10 ^3/uL (0-0.2); Basophils % (auto) 0.5 % (0.0-2.0); Eosinophils # (auto) 0.4 10 ^3/uL (0-0.8); Eosinophils % (auto) 3.4 % (0.0-7.0); Hematocrit 34.1 % (41.0-53.0); Lymphocytes % (auto) 9.4 % (10.0-50.0); Mean Corpuscular Hgb Conc. 31.9 g/dL (32.0-36.0); Mean Corpuscular Volume 82.5 fL (80.0-100.0); Neutrophils % (auto) 74.7 % (37.0-80.0); Platelet Count (auto) 238 10^3/uL (140-450); Red Blood Cells 4.13 10^6/uL (4.5-5.90); Red Cell Distribution Width 18.7 % (11.8-14.3); White Blood Cell 13.3 10^3/uL (4.4-10.8)
[2024-03-10 10:49] LABS: Alkaline Phosphatase 77 U/L (46-116); Anion Gap 5 (5-15); Aspartate Aminotransferase 18 U/L (13-40); BUN/Creatinine Ratio 12.7 (10.0-20.0); Blood Urea Nitrogen 19 mg/dL (9-23); Calcium 9.4 mg/dL (8.7-10.4); Chloride 99 mmol/L (98-107); Potassium 3.8 mmol/L (3.5-5.1)
[2024-03-10 10:50] LABS: Bilirubin, Total 0.3 mg/dL (0.2-1.0); Total Protein 8.2 g/dL (5.7-8.2)
[2024-03-10 10:59] LABS: Carbon Dioxide 31 mmol/L (20-31); Glucose 168 mg/dL (74-106); Sodium 135 mmol/L (136-145)
[2024-03-10 11:00] LABS: Alanine Aminotransferase < 9 U/L (7-40)
[2024-03-10] MEDS: IPRATROPIUM BROM 0.5 MG/2.5ML INH SOL NEB PRN (16:01)
[2024-03-10] MEDS: LEVALBUTEROL HCL 1.25 MG/3 ML NEB NEB SCH (18:03)
--- NOTE | 2024-03-10 18:42 | DVHINCON2 ---
Date of service: Mar 10, 2024 Referring Physician Hospitalist Reason for Consultation Acute kidney injury History of Present Illness 68-year-old male past medical history of severe aortic stenosis, hypertension, coronary artery disease, LVH, and history of cocaine abuse presents to the hospital complaining of shortness of breath. Nephrology consulted due to elevated creatinine level. Based on previous hospitalizations patient's renal function is approximately stage IIIA. Past Medical History as above Allergies: Coded Allergies: NO KNOWN ALLERGIES (Unverified , 03/23/20) Home Meds Reported Medications Clonidine Hydrochloride (Clonidine Hcl) 0.1 Mg Tab, 1 TAB PO BID 08/17/22 Amlodipine Besylate (Amlodipine Besylate) 10 Mg Tab, 1 TAB PO DAILY 08/17/22 Metoprolol Succinate (Metoprolol Succinate Er) 25 Mg Tab, 1 TAB PO DAILY 08/17/22 Alprazolam (Alprazolam) 2 Mg Tab, 1 TAB PO TID PRN for anxiety 08/17/22 Minoxidil (Loniten) 2.5 Mg Tb, 2 TAB PO BID 06/09/22 Lisinopril (Lisinopril) 20 Mg Tab, 1 TAB PO DAILY 06/09/22 Current Medications Current Medications Medications (Trade) Dose Ordered Sig/Norah Route PRN Reason Start Time Stop Time Status Last Admin Ceftriaxone Sodium 50 ml @ 100 mls/hr DAILY@09 IV 03/10/24 09:00 03/10/24 10:07 Azithromycin 250 ml @ 125 mls/hr DAILY IV 03/10/24 10:00 Hold Enoxaparin Sodium (Lovenox) 40 mg DAILY SC 03/10/24 10:00 03/10/24 10:06 Aspirin 81 mg DAILY PO 03/10/24 10:00 03/10/24 10:05 Atorvastatin Calcium (Lipitor) 10 mg HS PO 03/09/24 22:00 03/09/24 21:46 Levalbuterol HCl (Xopenex Medneb) 0.625 mg Q6HR NEB 03/10/24 18:00 03/10/24 18:03 Family History: Diabetes mellitus G8 MOTHER FH: lupus G8 MOTHER FH: myocardial infarction G8 FATHER, Onset:Unknown Family history: Hypercholesterolemia (situation) G8 FATHER Family history: Hypertension G8 MOTHER G8 FATHER Review of Systems Chest discomfort and shortness of breath H&P Exam Vital Signs/I&O Vital Sign Date Time Temp Pulse Resp B/P (MAP) Pulse Ox O2 Delivery O2 Flow Rate FiO2 03/10/24 16:44 98.0 84 20 151/99 (116) 96 98.0 03/10/24 16:01 Nasal Cannula 5.0 03/10/24 16:01 40 Intake and Output 03/09/24 03/10/24 19:00 07:00 Intake Total 400 ml 120 ml Output Total 200 ml Balance 400 ml -80 ml Intake Oral 120 ml IV Total 400 ml Output Urine Total 200 ml Physical Exam Elderly male Not in overt distress Abdomen is soft Positive murmur Labs/Diagnostic Data Labs/Diagnostic Data Laboratory Tests Test 03/10/24 10:05 03/09/24 21:32 03/09/24 18:17 03/09/24 15:00 Range/Units White Blood Count 13.3 H 14.4 H 4.4-10.8 10^3/uL Red Blood Count 4.13 L 4.37 L 4.5-5.90 10^6/uL Hemoglobin 10.9 L 11.3 L 13.5-17.5 g/dL Hematocrit 34.1 L 36.4 L 41.0-53.0 % Mean Corpuscular Volume 82.5 83.3 80.0-100.0 fL Mean Corpuscular Hemoglobin 26.3 L 25.9 L 28.0-32.0 pg Mean Corpuscular Hemoglobin Concent 31.9 L 31.1 L 32.0-36.0 g/dL Red Cell Distribution Width 18.7 H 19.2 H 11.8-14.3 % Platelet Count 238 244 140-450 10^3/uL Mean Platelet Volume 8.9 8.3 6.9-10.8 fL Neutrophils (%) (Auto) 74.7 75.3 37.0-80.0 % Lymphocytes (%) (Auto) 9.4 L 11.6 10.0-50.0 % Monocytes (%) (Auto) 12.0 10.7 0.0-12.0 % Eosinophils (%) (Auto) 3.4 1.5 0.0-7.0 % Basophils (%) (Auto) 0.5 0.9 0.0-2.0 % Neutrophils # (Auto) 10.0 H 10.9 H 1.6-8.6 10 ^3/uL Lymphocytes # (Auto) 1.3 1.7 0.4-5.4 10 ^3/uL Monocytes # (Auto) 1.6 H 1.5 H 0-1.3 10 ^3/uL Eosinophils # (Auto) 0.4 0.2 0-0.8 10 ^3/uL Basophils # (Auto) 0.1 0.1 0-0.2 10 ^3/uL Nucleated Red Blood Cells 0.0 0.1 % Sodium Level 135 L 136-145 mmol/L Potassium Level 3.8 3.5-5.1 mmol/L Chloride Level 99 98-107 mmol/L Carbon Dioxide Level 31 20-31 mmol/L Anion Gap 5 5-15 Blood Urea Nitrogen 19 9-23 mg/dL Creatinine 1.50 H 0.700-1.30 mg/dL Glomerular Filtration Rate Calc 50 >90 mL/min BUN/Creatinine Ratio 12.7 10.0-20.0 Serum Glucose 168 H 74-106 mg/dL Lactic Acid Level 1.1 1.8 0.4-2.0 mmol/L Calcium Level 9.4 8.7-10.4 mg/dL Total Bilirubin 0.3 0.2-1.0 mg/dL Aspartate Amino Transferase (AST) 18 13-40 U/L Alanine Aminotransferase (ALT) < 9 7-40 U/L Alkaline Phosphatase 77 46-116 U/L Total Protein 8.2 5.7-8.2 g/dL Albumin 4.0 3.2-4.8 g/dL Influenza Type A Antigen Negative Negative Influenza Type B Antigen Negative Negative SARS-CoV-2 Antigen (Rapid) Negative NEGATIVE Hemoglobin A1c 5.9 H <5.7 % A1C Troponin I High Sensitivity 85 *H </=54 ng/L B-Type Natriuretic Peptide 830.51 0-100 pg/mL Urine Color Light-yellow Yellow Urine Clarity Clear Clear Urine pH 6.5 5.0-9.0 Urine Specific [place] 1.007 1.001-1.035 Urine Protein Negative Negative Urine Ketones Negative Negative Urine Blood Negative Negative /uL Urine Nitrite Negative Negative Urine Bilirubin Negative Negative Urine Urobilinogen Normal Negative mg/dL Urine Leukocyte Esterase Trace Negative /uL Urine RBC 2 0 - 3 /hpf Urine WBC 15 0 - 3 /hpf Urine Squamous Epithelial Cells None seen <5 /hpf Urine Bacteria None seen None Seen /hpf Urine Hyaline Casts Few 0 - 2 /lpf Urine Glucose Normal Normal mg/dL Urine Opiates Screen Neg NEGATIVE Urine Fentanyl Screen Neg NEGATIVE Urine Barbiturates Screen Neg NEGATIVE Urine Phencyclidine Screen Neg NEGATIVE Urine Amphetamines Screen Neg NEGATIVE Urine Benzodiazepines Screen Neg NEGATIVE Urine Cocaine Screen Pos NEGATIVE Urine Cannabinoids Screen Neg NEGATIVE Test 03/09/24 13:20 03/09/24 12:03 Range/Units Troponin I High Sensitivity 69 *H 81 *H </=54 ng/L Sodium Level 137 136-145 mmol/L Potassium Level 3.6 3.5-5.1 mmol/L Chloride Level 102 98-107 mmol/L Carbon Dioxide Level 24 20-31 mmol/L Anion Gap 11 5-15 Blood Urea Nitrogen 15 9-23 mg/dL Creatinine 1.62 H 0.700-1.30 mg/dL Glomerular Filtration Rate Calc 45 >90 mL/min BUN/Creatinine Ratio 9.3 L 10.0-20.0 Serum Glucose 196 H 74-106 mg/dL Lactic Acid Level 2.4 *H 0.4-2.0 mmol/L Calcium Level 9.7 8.7-10.4 mg/dL Magnesium Level 1.7 1.6-2.6 mg/dL Total Bilirubin 0.3 0.2-1.0 mg/dL Aspartate Amino Transferase (AST) 29 13-40 U/L Alanine Aminotransferase (ALT) 10 7-40 U/L Alkaline Phosphatase 90 46-116 U/L Total Protein 8.5 H 5.7-8.2 g/dL Albumin 4.2 3.2-4.8 g/dL Assessment Acute kidney injury hemodynamically mediated Chronic kidney disease stage IIIA Cocaine abuse Aortic stenosis LVH and diastolic heart disease Hypertension Cardiology Blood pressure optimization Supportive care Avoid hypotension Plan discussed with: Patient SUSANNA QUAN MD Mar 10, 2024 18:42
[2024-03-10] MEDS: amLODIPine BESYLATE 5 MG TAB PO ONE (19:38)
--- NOTE | 2024-03-10 20:15 | DVHSR ---
APPROVED REPORT EXAM: Two-dimensional and M-mode echocardiogram with Doppler and color Doppler. Blood Pressure: 141/89 mmHg INDICATION Chest Pain RISK FACTORS Obesity: Height: 5'8, Weight: 220 DIMENSIONS LVDd2.7 (3.8-5.7cm)LA (2D)3.7 (1.9-4.0cm)Aortic Root3.9 (2.0-3.7cm) LVDs2.1 (2.5-4.0cm)LA (MM) (1.9-4.0cm)Aortic Cusp Exc0.8 (1.5-2.0cm) EF (%) 50.0 (55-70%)Rt. Atrium (1.9-4.0cm)Asc. Aorta3.9 cm IVSd1.6 (0.7-1.1cm)RV (D) (1.8-2.4cm) PWd1.8 (0.7-1.1cm) Mitral Valve MitralMitral Stenosis E wavem/sMV Mean GR.8mmHg A wavem/sMV Peak GR.219mmHg E/A ratio0.02D MVAcm2 Aortic Valve Aortic ValveAortic Stenosis V1m/Shalom Mean GR.40mmHg V23.98m/Shalom Peak GR.63mmHg LVOT Diameter2.0 (1.8-2.4cm)Doppler AVAcm2 Tricuspid Valve TR Velocity2.66m/s [id number] LEFT VENTRICLE The left ventricle cavity is small. There is moderate to severeconcentric left ventricular hypertrophy. The left ventricle is hyperdynamic, LVEF > 70% Wall motion appears grossly normal. RIGHT VENTRICLE The right ventricle is normal size. Systolic function is mildly reduced. ATRIA The left atrial size is normal. The right atrium size is normal. MITRAL VALVE Posterior mitral leaflet appears calcified. Mean gradient 8 mmHg suggesting mitral valve stenosis. PULMONIC VALVE The pulmonic valve is not well visualized. TRICUSPID VALVE The tricuspid valve is not well visualized. There is trace tricuspid regurgitation. AORTIC VALVE The aortic valve is heavily calcified. No aortic regurgitation is present. Not assessed. GREAT VESSELS Aortic sinuses of Valsalva are mild dilated. PERICARDIAL EFFUSION No pericardial effusion. Conclusion Compared to prior echocardiogram 06/2022: Patient with known moderate aortic stenosis and mitral valve disease. Not assessed sufficiently on current study, would recommend limited study to reassess aorti c and mitral valves. The left ventricle cavity is small. There is moderate to severe concentric left ventricular hypertrop hy. The left ventricle is hyperdynamic, LVEF > 70%. Wall motion appears grossly normal. The right ventricle is normal size. RV systolic function is mildly reduced. Left and right atrial size is normal. Posterior mitral leaflet appears calcified. Mean gradient 8 mmHg suggesting mitral valve stenosis. Ne eds further assessment. The aortic valve is heavily calcified, leaflets do not appear to open well. AV gradients not assessed . Needs further assessment. IVC is dilated and collapses less than 50% with inspiration. No pericardial effusion.
[2024-03-10] MEDS: METOPROLOL TARTRATE 25 MG TAB PO SCH (22:05)
[2024-03-10] MEDS ORDERED: LACTATED RINGER'S 1,000 ML IV ONE (23:30)
--- NOTE | 2024-03-10 23:42 | DVHPN2 ---
Subjective / - still coughing, mild SOB, appears euvolemic. has asympmatic PAT, rates upto 150s. Reviewed: H&P Changes from previous H/P or p: No Changes General: Per HPI Eyes: No Pain, No Vision change, No Conjunctivae inflammation, No Eyelid inflammation, No Other, No Redness ENT: No Ear pain, No Ear discharge, No Nose pain, No Nose discharge, No Nose congestion, No Mouth pain, No Mouth swelling, No Throat pain, No Throat swelling, No Other Cardiovascular: Chest Pain; No Palpitations, No Orthopnea, No Paroxysmal Noc. Dyspnea, No Edema, No Lt Headedness, No Other Respiratory: No Cough, No Dry; Shortness of breath, SOB with excertion; No Wheezing, No Hemoptysis, No Pleuritic Pain, No Sputum, No Other Gastrointestinal: No Nausea, No Vomiting, No Abdominal Pain, No Diarrhea, No Constipation, No Melena, No Hematochezia, No Other Genitourinary: No Dysuria, No Frequency, No Incontinence, No Hematuria, No Retention, No Other Musculoskeletal: No other, No neck pain, No shoulder pain, No arm pain, No back pain, No hand pain, No leg pain, No foot pain Skin: No Rash, No Lesions, No Jaundice, No Bruising, No Other Objective Vitals Vital Signs Date Time Temp Pulse Resp B/P (MAP) Pulse Ox O2 Delivery O2 Flow Rate FiO2 03/10/24 22:05 97 161/96 03/10/24 21:00 98.5 19 100 98.5 03/10/24 18:03 Nasal Cannula 5.0 03/10/24 18:03 40 Intake/Output Intake and Output 03/10/24 07:00 Intake Total 520 ml Output Total 200 ml Balance 320 ml Intake Oral 120 ml IV Total 400 ml Output Urine Total 200 ml Exam GEN: Healthy appearing, well-developed, NAD. HEENT: NC/AT; MMM. CV: RRR, no m/r/g. LUNGS: CTAB, no w/r/c. ABD: Soft, NT/ND, NBS, no masses or organomegaly. EXT: skin Warm, well perfused. no rashes. No clubbing, cyanosis, or edema. NEURO: Ambulating with no limitations. No focal deficits. Medications Current Medications Medications Dose Ordered Sig/Norah Route Start Time Stop Time Status Last Admin Dose Admin Ceftriaxone Sodium 50 ml @ 100 mls/hr DAILY@09 IV 03/10/24 09:00 03/10/24 10:07 100 MLS/HR Azithromycin 250 ml @ 125 mls/hr DAILY IV 03/10/24 10:00 Hold Albuterol 2.5 mg Q4HPRN PRN NEB 03/09/24 14:15 Ipratropium [place] 0.5 mg Q6HWA NEB 03/09/24 18:00 03/10/24 18:02 0.5 MG Ipratropium [place] 0.5 mg Q4HPRN PRN NEB 03/09/24 14:15 03/10/24 16:01 0.5 MG Acetaminophen/ Hydrocodone Bitart 1 tab Q4HP PRN PO 03/09/24 14:15 03/10/24 23:19 1 TAB Ondansetron HCl 4 mg Q4HP PRN IV 03/09/24 14:15 03/09/24 15:29 4 MG Enoxaparin Sodium 40 mg DAILY SC 03/10/24 10:00 03/10/24 10:06 40 MG Acetaminophen 650 mg Q6HP PRN PO 03/09/24 14:15 Nitroglycerin 0.4 mg Q5MINP PRN SL 03/09/24 14:15 Morphine Sulfate 2 mg Q30M PRN IV 03/09/24 14:15 03/10/24 02:13 2 MG Diagnostic Test (Pha) 1 strip ACHS 03/09/24 17:00 03/10/24 22:14 1 STRIP Insulin Human Regular ACHS SC 03/09/24 17:00 03/10/24 22:14 2 UNITS Dextrose 50 ml UD PRN IV 03/09/24 14:15 Aspirin 81 mg DAILY PO 03/10/24 10:00 03/10/24 10:05 81 MG Atorvastatin Calcium 10 mg HS PO 03/09/24 22:00 03/10/24 22:03 10 MG Levalbuterol HCl 0.625 mg Q6HR NEB 03/10/24 18:00 03/10/24 18:03 0.625 MG Amlodipine Besylate 10 mg DAILY PO 03/11/24 10:00 Metoprolol Tartrate 50 mg BID PO 03/11/24 10:00 UNV Laboratory Results Laboratory Tests 03/10/24 10:05 Chemistry Test 03/10/24 10:05 Albumin 4.0 g/dL (3.2-4.8) Calcium Level 9.4 mg/dL (8.7-10.4) Total Protein 8.2 g/dL (5.7-8.2) LFT Test 03/10/24 10:05 Alanine Aminotransferase (ALT) < 9 U/L (7-40) Alkaline Phosphatase 77 U/L (46-116) Aspartate Amino Transferase (AST) 18 U/L (13-40) Total Bilirubin 0.3 mg/dL (0.2-1.0) Urinalysis Test 03/09/24 15:00 Urine Color Light-yellow (Yellow) Urine Clarity Clear (Clear) Urine pH 6.5 (5.0-9.0) Urine Specific [place] 1.007 (1.001-1.035) Urine Protein Negative (Negative) Urine Ketones Negative (Negative) Urine Blood Negative /uL (Negative) Urine Nitrite Negative (Negative) Urine Bilirubin Negative (Negative) Urine Urobilinogen Normal mg/dL (Negative) Urine Leukocyte Esterase Trace /uL (Negative) Urine RBC 2 /hpf (0 - 3) Urine WBC 15 /hpf (0 - 3) Urine Squamous Epithelial Cells None seen /hpf (<5) Urine Bacteria None seen /hpf (None Seen) Urine Hyaline Casts Few /lpf (0 - 2) Urine Glucose Normal mg/dL (Normal) Labs and/or images reviewed: Labs reviewed by me, Image(s) reviewed by me Assessment/Plan Assessment/Plan 03/10 - still coughing, mild SOB, appears euvolemic. has asympmatic PAT, rates upto 150s and we will upgrade to Lopressor 50 . choice provider to take over the case tomorrow. Pneumonia Gram-positive Gram-negative likely acute on chronic COPD exacerbation, Type 2 NSTEMI - patient presenting with chest pain and shortness of breath, flu and COVID negative, leukocytosis with neutrophilia, tachycardia, BNP elevated - Chest x-ray concerning for pneumonia -started on ceftriaxone azithromycin - we will need to start corticosteroids -patient is euvolemic, hold off Lasix, can give slow fluids. -consult tries cardiology. Paroxysmal atrial tachycardia -patient is on metoprolol 25 XL at home, inpatients started on Lopressor 25 b.i.d., we will upgrade to Lopressor 50 b.i.d. Half pack history Hypertension history CAD history CKD history creatinine 1.3-nephrology to follow up Diet cardiac DVT prophylaxis Lovenox subQ GI prophylaxis tolerating diet Med tele Full code Plan discussed with: Patient My Orders Orders - CASSANDRA MALDONADO MD Procedure Category Date Status Time Levalbuterol Hcl PHA 03/10/24 In Process (Xopenex Medneb) 18:00 Metoprolol Tartrate PHA 03/11/24 Logged Tablet (Lopressor Ta 10:00 Metoprolol Tartrate PHA 03/10/24 Transmitted Tablet (Lopressor Ta 23:45 Date of Service: Mar 10, 2024 Billing Provider: CASSANDRA MALDONADO MD Common Visit Codes: [id number] INP/OBS CARE(HIGH) CASSANDRA MALDONADO MD Mar 10, 2024 23:42
[2024-03-11] VITALS (15 sets, daily range): BP systolic 124–176; BP diastolic 79–89; PULSE 66–84; RESP 17–20; TEMP 97.9–100; O2SAT 96–100
[2024-03-11] MEDS: METOPROLOL TARTRATE 25 MG TAB PO ONE (00:18)
[2024-03-11] MEDS: methylPREDNISolone SOD SUCC 40 MG/ML VL IV ONE (00:19)
--- NOTE | 2024-03-11 07:25 | ECG ---
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
--- NOTE | 2024-03-11 07:25 | ECG ---
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
--- NOTE | 2024-03-11 08:49 | ECG ---
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
[2024-03-11] MEDS: methylPREDNISolone SOD SUCC 40 MG/ML VL IV SCH (09:59)
[2024-03-11] MEDS: amLODIPine BESYLATE 5 MG TAB PO SCH (10:01)
[2024-03-11] MEDS: METOPROLOL TARTRATE 25 MG TAB PO SCH (10:02)
--- NOTE | 2024-03-11 12:17 | DVHPN2 ---
Progress Note Date Seen: Mar 11, 2024 Medical Necessity Reason Pt with a Central, PICC or Fol: No Subjective Patient reports: Feels better Review of Systems: Deferred Objective vital signs Vital Sign Date Time Temp Pulse Resp B/P (MAP) Pulse Ox O2 Delivery O2 Flow Rate FiO2 03/11/24 10:02 66 164/84 03/11/24 09:00 98.2 18 96 98.2 03/11/24 07:37 6.0 03/11/24 07:37 Nasal Cannula* 44 Total Intake and Output 03/10/24 03/10/24 03/11/24 15:00 23:00 07:00 Intake Total 50 ml 1280 ml 786 ml Output Total 1400 ml 201 ml Balance 50 ml -120 ml 585 ml medications Current Medications Medications Dose Ordered Sig/Norah Route Start Time Stop Time Status Last Admin Dose Admin Ceftriaxone Sodium 50 ml @ 100 mls/hr DAILY@09 IV 03/10/24 09:00 03/11/24 09:59 100 MLS/HR Azithromycin 250 ml @ 125 mls/hr DAILY IV 03/10/24 10:00 Hold Albuterol 2.5 mg Q4HPRN PRN NEB 03/09/24 14:15 Ipratropium [place] 0.5 mg Q6HWA NEB 03/09/24 18:00 03/11/24 07:33 0.5 MG Ipratropium [place] 0.5 mg Q4HPRN PRN NEB 03/09/24 14:15 03/10/24 16:01 0.5 MG Acetaminophen/ Hydrocodone Bitart 1 tab Q4HP PRN PO 03/09/24 14:15 03/11/24 10:03 1 TAB Ondansetron HCl 4 mg Q4HP PRN IV 03/09/24 14:15 03/09/24 15:29 4 MG Enoxaparin Sodium 40 mg DAILY SC 03/10/24 10:00 03/11/24 10:00 40 MG Acetaminophen 650 mg Q6HP PRN PO 03/09/24 14:15 Nitroglycerin 0.4 mg Q5MINP PRN SL 03/09/24 14:15 Morphine Sulfate 2 mg Q30M PRN IV 03/09/24 14:15 03/10/24 02:13 2 MG Diagnostic Test (Pha) 1 strip ACHS 03/09/24 17:00 03/11/24 11:30 1 STRIP Insulin Human Regular ACHS SC 03/09/24 17:00 03/11/24 12:07 6 UNITS Dextrose 50 ml UD PRN IV 03/09/24 14:15 Aspirin 81 mg DAILY PO 03/10/24 10:00 03/11/24 10:00 81 MG Atorvastatin Calcium 10 mg HS PO 03/09/24 22:00 03/10/24 22:03 10 MG Levalbuterol HCl 0.625 mg Q6HR NEB 03/10/24 18:00 03/11/24 07:33 0.625 MG Amlodipine Besylate 10 mg DAILY PO 03/11/24 10:00 03/11/24 10:01 10 MG Metoprolol Tartrate 50 mg BID PO 03/11/24 10:00 03/11/24 10:02 50 MG Methylprednisolone Sodium Succinate 40 mg BID IV 03/11/24 10:00 03/11/24 09:59 40 MG Examination: GENERAL:Normal, CVS:Abnormal laboratory and microbiology Laboratory Tests 03/10/24 10:05 Test 03/10/24 10:05 Range/Units Serum Glucose 168 H 74-106 mg/dL Problem List/Assessment/Plan Problem List/Assessment/Plan Acute kidney injury hemodynamically mediated Chronic kidney disease stage IIIA Cocaine abuse Aortic stenosis LVH and diastolic heart disease Hypertension Cardiology Blood pressure optimization Supportive care Avoid hypotension renal function has improved. no new recs at this time will sign off Plan discussed with: Patient My Orders My Orders Orders - SUSANNA QUAN MD Procedure Category Date Status Time Amlodipine Tablet PHA 03/11/24 In Process (Norvasc Tablet) 10:00 SUSANNA QUAN MD Mar 11, 2024 12:17
--- NOTE | 2024-03-11 16:07 | DVHDS2 ---
Discharge Summary Date of Admission Mar 09, 2024 at 14:02 Date of Discharge: Mar 11, 2024 Labs/Diagnostic Data: Laboratory Results Test 03/10/24 10:05 03/09/24 21:32 03/09/24 18:17 03/09/24 15:00 White Blood Count 13.3 10^3/uL (4.4-10.8) Red Blood Count 4.13 10^6/uL (4.5-5.90) Hemoglobin 10.9 g/dL (13.5-17.5) Hematocrit 34.1 % (41.0-53.0) Mean Corpuscular Volume 82.5 fL (80.0-100.0) Mean Corpuscular Hemoglobin 26.3 pg (28.0-32.0) Mean Corpuscular Hemoglobin Concent 31.9 g/dL (32.0-36.0) Red Cell Distribution Width 18.7 % (11.8-14.3) Platelet Count 238 10^3/uL (140-450) Mean Platelet Volume 8.9 fL (6.9-10.8) Neutrophils (%) (Auto) 74.7 % (37.0-80.0) Lymphocytes (%) (Auto) 9.4 % (10.0-50.0) Monocytes (%) (Auto) 12.0 % (0.0-12.0) Eosinophils (%) (Auto) 3.4 % (0.0-7.0) Basophils (%) (Auto) 0.5 % (0.0-2.0) Neutrophils # (Auto) 10.0 10 ^3/uL (1.6-8.6) Lymphocytes # (Auto) 1.3 10 ^3/uL (0.4-5.4) Monocytes # (Auto) 1.6 10 ^3/uL (0-1.3) Eosinophils # (Auto) 0.4 10 ^3/uL (0-0.8) Basophils # (Auto) 0.1 10 ^3/uL (0-0.2) Nucleated Red Blood Cells 0.0 % Sodium Level 135 mmol/L (136-145) Potassium Level 3.8 mmol/L (3.5-5.1) Chloride Level 99 mmol/L (98-107) Carbon Dioxide Level 31 mmol/L (20-31) Anion Gap 5 (5-15) Blood Urea Nitrogen 19 mg/dL (9-23) Creatinine 1.50 mg/dL (0.700-1.30) Glomerular Filtration Rate Calc 50 mL/min (>90) BUN/Creatinine Ratio 12.7 (10.0-20.0) Serum Glucose 168 mg/dL (74-106) Lactic Acid Level 1.1 mmol/L (0.4-2.0) Calcium Level 9.4 mg/dL (8.7-10.4) Total Bilirubin 0.3 mg/dL (0.2-1.0) Aspartate Amino Transferase (AST) 18 U/L (13-40) Alanine Aminotransferase (ALT) < 9 U/L (7-40) Alkaline Phosphatase 77 U/L (46-116) Total Protein 8.2 g/dL (5.7-8.2) Albumin 4.0 g/dL (3.2-4.8) Influenza Type A Antigen Negative (Negative) Influenza Type B Antigen Negative (Negative) SARS-CoV-2 Antigen (Rapid) Negative (NEGATIVE) Hemoglobin A1c 5.9 % A1C (<5.7) Troponin I High Sensitivity 85 ng/L (</=54) B-Type Natriuretic Peptide 830.51 pg/mL (0-100) Urine Color Light-yellow (Yellow) Urine Clarity Clear (Clear) Urine pH 6.5 (5.0-9.0) Urine Specific [place] 1.007 (1.001-1.035) Urine Protein Negative (Negative) Urine Ketones Negative (Negative) Urine Blood Negative /uL (Negative) Urine Nitrite Negative (Negative) Urine Bilirubin Negative (Negative) Urine Urobilinogen Normal mg/dL (Negative) Urine Leukocyte Esterase Trace /uL (Negative) Urine RBC 2 /hpf (0 - 3) Urine WBC 15 /hpf (0 - 3) Urine Squamous Epithelial Cells None seen /hpf (<5) Urine Bacteria None seen /hpf (None Seen) Urine Hyaline Casts Few /lpf (0 - 2) Urine Glucose Normal mg/dL (Normal) Urine Opiates Screen Neg (NEGATIVE) Urine Fentanyl Screen Neg (NEGATIVE) Urine Barbiturates Screen Neg (NEGATIVE) Urine Phencyclidine Screen Neg (NEGATIVE) Urine Amphetamines Screen Neg (NEGATIVE) Urine Benzodiazepines Screen Neg (NEGATIVE) Urine Cocaine Screen Pos (NEGATIVE) Urine Cannabinoids Screen Neg (NEGATIVE) Test 03/09/24 12:03 Magnesium Level 1.7 mg/dL (1.6-2.6) Other Laboratory Tests 03/10/24 10:05 Brief Hx & Hospital Course: 68-year-old male initially presented to hospital with chest pain shortness of breaths found to have acute on chronic hypoxic respiratory failure secondary to acute CHF exacerbation likely diastolic dysfunction. Patient was also found to have acute COPD exacerbation and possible pneumonia. Patient was treated with med nebs Solu-Medrol IV antibiotics. Cardiology was consulted as well. Patient does have known history of illicit drug use currently using cocaine actively. Patient was oxygen consulted was broken which we will be arranged. Patient was being discharged under stable condition. He was recommended to follow up with the PCP and Cardiology in 1-2 weeks. Condition at Discharge: Stable Final Diagnosis/Problems List 68-year-old male initially presented to hospital with chest pain shortness of breaths found to have 1. Acute on chronic hypoxic respiratory failure secondary to underlying CHF exacerbation and COPD exacerbation and pneumonia 2. Community-acquired pneumonia 3. Acute CHF exacerbation with diastolic dysfunction 4. Acute COPD exacerbation 5. Paroxysmal atrial tachycardia 6. Acute kidney injury with underlying CKD stage 3 7. Chronic cocaine use Discharge Disposition: Home with Health Services SNF Discharge Will this Physician continue t: No Discharge Statement: "Patient was advised to return to the ER or call 911 if any headaches, dizziness, shortness of breath, chest pain, abdominal pain, bleeding, fevers, or worsening of medical condition. Patient was counseled about treatment plan, medications, possible side effects, patientverbalized understanding. All questions were answered to the best of my ability. This discharge took greater then 30 minutes in planning, reviewing documentation, counseling the patient, and discussing with other team members." ASSESSMENT ASSESSMENT Assessment Date of Service: Mar 11, 2024 Billing Provider: JIMBO BARKLEY MD Common Visit Codes: NOT BILLABLE JIMBO BARKLEY MD Mar 11, 2024 16:07
--- NOTE | 2024-03-11 16:07 | DVHINCON2 ---
Date Seen: Mar 10, 2024 Referring Physician Hospitalist team Reason for Consultation Assuming care of the patient as per HMO request. History of Present Illness 68-year-old male with a known history of chronic respiratory failure on home O2, COPD, chronic cocaine use, CKD stage 3 , history of aortic valve surgery initially admitted to the hospital with chest pain shortness breath found to have acute on chronic congestive heart failure exacerbation with diastolic dysfunction. Patient is currently denies any chest pain denies any shortness of breath. She did mentioned that his oxygen concentrator is broken he needs new one. He has oxygen level does not go above 5 L of oxygen in the concentrated. Past Medical History Chronic respiratory failure on home O2, COPD, congestive heart failure, CKD stage 3 Family History: Diabetes mellitus G8 MOTHER FH: lupus G8 MOTHER FH: myocardial infarction G8 FATHER, Onset:Unknown Family history: Hypercholesterolemia (situation) G8 FATHER Family history: Hypertension G8 MOTHER G8 FATHER Allergies: Coded Allergies: NO KNOWN ALLERGIES (Unverified , 03/23/20) Home Meds Reported Medications Clonidine Hydrochloride (Clonidine Hcl) 0.1 Mg Tab, 1 TAB PO BID 08/17/22 Amlodipine Besylate (Amlodipine Besylate) 10 Mg Tab, 1 TAB PO DAILY 08/17/22 Metoprolol Succinate (Metoprolol Succinate Er) 25 Mg Tab, 1 TAB PO DAILY 08/17/22 Alprazolam (Alprazolam) 2 Mg Tab, 1 TAB PO TID PRN for anxiety 08/17/22 Minoxidil (Loniten) 2.5 Mg Tb, 2 TAB PO BID 06/09/22 Lisinopril (Lisinopril) 20 Mg Tab, 1 TAB PO DAILY 06/09/22 Current Medications Current Medications Medications (Trade) Dose Ordered Sig/Norah Route PRN Reason Start Time Stop Time Status Last Admin Levalbuterol HCl (Xopenex Medneb) 0.625 mg Q6HR NEB 03/10/24 18:00 03/11/24 13:37 Amlodipine Besylate (Norvasc Tablet) 10 mg DAILY PO 03/11/24 10:00 03/11/24 10:01 Metoprolol Tartrate (Lopressor Tablet) 25 mg BID PO 03/10/24 22:00 03/10/24 23:35 DC 03/10/24 22:05 Metoprolol Tartrate (Lopressor Tablet) 50 mg BID PO 03/11/24 10:00 03/11/24 10:02 Methylprednisolone Sodium Succinate (Solu Medrol) 40 mg BID IV 03/11/24 10:00 03/11/24 09:59 Review of Systems 12 review of system are negative besides mentioned above. 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 no motor deficit Labs/Diagnostic Data Labs Test 03/10/24 10:05 03/09/24 21:32 03/09/24 18:17 03/09/24 15:00 Range/Units White Blood Count 13.3 H 4.4-10.8 10^3/uL Red Blood Count 4.13 L 4.5-5.90 10^6/uL Hemoglobin 10.9 L 13.5-17.5 g/dL Hematocrit 34.1 L 41.0-53.0 % Mean Corpuscular Volume 82.5 80.0-100.0 fL Mean Corpuscular Hemoglobin 26.3 L 28.0-32.0 pg Mean Corpuscular Hemoglobin Concent 31.9 L 32.0-36.0 g/dL Red Cell Distribution Width 18.7 H 11.8-14.3 % Platelet Count 238 140-450 10^3/uL Mean Platelet Volume 8.9 6.9-10.8 fL Neutrophils (%) (Auto) 74.7 37.0-80.0 % Lymphocytes (%) (Auto) 9.4 L 10.0-50.0 % Monocytes (%) (Auto) 12.0 0.0-12.0 % Eosinophils (%) (Auto) 3.4 0.0-7.0 % Basophils (%) (Auto) 0.5 0.0-2.0 % Neutrophils # (Auto) 10.0 H 1.6-8.6 10 ^3/uL Lymphocytes # (Auto) 1.3 0.4-5.4 10 ^3/uL Monocytes # (Auto) 1.6 H 0-1.3 10 ^3/uL Eosinophils # (Auto) 0.4 0-0.8 10 ^3/uL Basophils # (Auto) 0.1 0-0.2 10 ^3/uL Nucleated Red Blood Cells 0.0 % Sodium Level 135 L 136-145 mmol/L Potassium Level 3.8 3.5-5.1 mmol/L Chloride Level 99 98-107 mmol/L Carbon Dioxide Level 31 20-31 mmol/L Anion Gap 5 5-15 Blood Urea Nitrogen 19 9-23 mg/dL Creatinine 1.50 H 0.700-1.30 mg/dL Glomerular Filtration Rate Calc 50 >90 mL/min BUN/Creatinine Ratio 12.7 10.0-20.0 Serum Glucose 168 H 74-106 mg/dL Lactic Acid Level 1.1 0.4-2.0 mmol/L Calcium Level 9.4 8.7-10.4 mg/dL Total Bilirubin 0.3 0.2-1.0 mg/dL Aspartate Amino Transferase (AST) 18 13-40 U/L Alanine Aminotransferase (ALT) < 9 7-40 U/L Alkaline Phosphatase 77 46-116 U/L Total Protein 8.2 5.7-8.2 g/dL Albumin 4.0 3.2-4.8 g/dL Influenza Type A Antigen Negative Negative Influenza Type B Antigen Negative Negative SARS-CoV-2 Antigen (Rapid) Negative NEGATIVE Hemoglobin A1c 5.9 H <5.7 % A1C Troponin I High Sensitivity 85 *H </=54 ng/L B-Type Natriuretic Peptide 830.51 0-100 pg/mL Urine Color Light-yellow Yellow Urine Clarity Clear Clear Urine pH 6.5 5.0-9.0 Urine Specific [place] 1.007 1.001-1.035 Urine Protein Negative Negative Urine Ketones Negative Negative Urine Blood Negative Negative /uL Urine Nitrite Negative Negative Urine Bilirubin Negative Negative Urine Urobilinogen Normal Negative mg/dL Urine Leukocyte Esterase Trace Negative /uL Urine RBC 2 0 - 3 /hpf Urine WBC 15 0 - 3 /hpf Urine Squamous Epithelial Cells None seen <5 /hpf Urine Bacteria None seen None Seen /hpf Urine Hyaline Casts Few 0 - 2 /lpf Urine Glucose Normal Normal mg/dL Urine Opiates Screen Neg NEGATIVE Urine Fentanyl Screen Neg NEGATIVE Urine Barbiturates Screen Neg NEGATIVE Urine Phencyclidine Screen Neg NEGATIVE Urine Amphetamines Screen Neg NEGATIVE Urine Benzodiazepines Screen Neg NEGATIVE Urine Cocaine Screen Pos NEGATIVE Urine Cannabinoids Screen Neg NEGATIVE Test 03/09/24 12:03 Range/Units Magnesium Level 1.7 1.6-2.6 mg/dL Assessment 68-year-old male initially presented to hospital with chest pain shortness of breaths found to have 1. Acute on chronic hypoxic respiratory failure secondary to underlying CHF exacerbation and COPD exacerbation and pneumonia 2. Community-acquired pneumonia 3. Acute CHF exacerbation with diastolic dysfunction 4. Acute COPD exacerbation 5. Paroxysmal atrial tachycardia 6. Acute kidney injury with underlying CKD stage 3 7. Chronic cocaine use -arrange oxygen concentrator, continue med nebs continue O2 supplementation, IV antibiotics IV diuretics- Discharge plan Plan discussed with: Patient Date of Service: Mar 10, 2024 Billing Provider: JIMBO BARKLEY MD Common Visit Codes: NOT BILLABLE JIMBO BARKLEY MD Mar 11, 2024 16:07
[2024-03-11] MEDS: ALBUTEROL SULF 2.5 MG/0.5ML(0.5%) NEB SOLN NEB PRN (20:31)
[2024-03-12] VITALS (9 sets, daily range): BP systolic 119–158; BP diastolic 80–89; PULSE 65–90; RESP 18–20; TEMP 97.6–98.1; O2SAT 93–100
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
[2024-03-12] MEDS ORDERED: DOXY100C79 PO (14:03)
[2024-03-12] MEDS ORDERED: METH4PAK PO (14:03)
--- NOTE | 2024-03-13 07:27 | ECG ---
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
== END 2024-03-12 12:30 | disposition home or self-care (01) | DRG 280 ==
LOC: ER 11:24 → EDBD 11:24 → TELE 14:02 → TELE-WESTW 14:46
PROVIDERS: ATTEND Internal Medicine
DX: I13.0 Hypertensive heart and chronic kidney disease with heart failure and stage 1 through stage 4 chronic kidney disease, or unspecified chronic kidney disease (principal); I50.33 Acute on chronic diastolic (congestive) heart failure; I21.A1 Myocardial infarction type 2; J18.9 Pneumonia, unspecified organism; J96.21 Acute and chronic respiratory failure with hypoxia; N17.9 Acute kidney failure, unspecified; J44.1 Chronic obstructive pulmonary disease with (acute) exacerbation; N39.0 Urinary tract infection, site not specified; J44.0 Chronic obstructive pulmonary disease with (acute) lower respiratory infection; I47.19 Other supraventricular tachycardia; Z20.822 Contact with and (suspected) exposure to COVID-19; N18.31 Chronic kidney disease, stage 3a; F14.10 Cocaine abuse, uncomplicated; I35.0 Nonrheumatic aortic (valve) stenosis; I25.10 Atherosclerotic heart disease of native coronary artery without angina pectoris; R73.9 Hyperglycemia, unspecified; E66.9 Obesity, unspecified; F19.90 Other psychoactive substance use, unspecified, uncomplicated; Z91.199 Patient's noncompliance with other medical treatment and regimen due to unspecified reason; Z83.3 Family history of diabetes mellitus; Z82.49 Family history of ischemic heart disease and other diseases of the circulatory system; Z99.81 Dependence on supplemental oxygen; Z68.22 Body mass index [BMI] 22.0-22.9, adult
CPT/HCPCS: 36415; 71045; 80053; 80307; 81001; 82962; 83036; 83605; 83735; 83880; 84484; 85025; 87426; 87804; 93005; 93306; 94640; G0378; J1815; J2405; J2543